=== PATIENT | male | born 1955 | race Two or more races ===

== ENCOUNTER → 2016-05-07 | Outpatient (CLI) | payer MEDICARE, MEDICAID ==
[~2016-05-07] MED LIST: BENZ1TAB2 PO; CITA-73 PO; FOLI1TAB51 PO; GLIP-115 PO; INSUINJ37 SUBCUT; METOCLOPRAMIDE PO; OMEP20CA5 PO; PROP60CA8 PO; TRAM-297 PO; ZIPR80CA8 PO
[2016-05-07 10:32] LABS: Basophils # (auto) 0 uL; Basophils % (auto) 0.4 % (0.0-2.0); Eosinophils # (auto) 0.1 uL; Eosinophils % (auto) 2.7 % (0.0-7.0); Hematocrit 40.8 % (41.0-53.0); Hemoglobin 13.1 g/dL (13.5-17.5); Lymphocytes % (auto) 24.3 % (10.0-50.0); Mean Corpuscular Hgb Conc. 32.3 g/dL (32.0-36.0); Mean Corpuscular Volume 93.1 fL (80.0-100.0); Mean Platelet Volume 9.7 fL (7.4-10.4); Monocytes # (auto) 0.3 uL; Monocytes % (auto) 7.1 % (0.0-12.0); Neutrophils # (auto) 2.8 uL; Neutrophils % (auto) 65.5 % (37.0-80.0); Platelet Count (auto) 93 10^3/uL (140-450); Red Cell Distribution Width 14.4 % (11.6-16.0); White Blood Cell 4.2 10^3/uL (4.4-10.8)
[2016-05-07 10:43] LABS: BUN/Creatinine Ratio 18.4; Bilirubin, Total 1.3 mg/dL (0.2-1.0); Calcium 8.5 mg/dL (8.5-10.1); Potassium 4.2 mmol/L (3.5-5.1); Total Protein 7.7 g/dL (6.4-8.2)
== END | disposition home or self-care (01) ==
LOC: LAB 09:27
PROVIDERS: ATTEND Internal Medicine
DX: D69.3 Immune thrombocytopenic purpura (principal)
CPT/HCPCS: 36415; 80053; 83615; 85025

== ENCOUNTER → 2016-07-30 | Outpatient (CLI) | payer MEDICARE, MEDICAID ==
[2016-07-30 10:01] LABS: Basophils # (auto) 0 uL; Basophils % (auto) 0.1 % (0.0-2.0); Eosinophils # (auto) 0.1 uL; Hemoglobin 13.6 g/dL (13.5-17.5); Lymphocytes # (auto) 0.9 uL; Lymphocytes % (auto) 19.3 % (10.0-50.0); Mean Corpuscular Hemoglobin 31.2 pg (28.0-32.0); Mean Corpuscular Hgb Conc. 33.3 g/dL (32.0-36.0); Mean Corpuscular Volume 93.8 fL (80.0-100.0); Mean Platelet Volume 9.6 fL (7.4-10.4); Monocytes # (auto) 0.5 uL; Monocytes % (auto) 10.3 % (0.0-12.0); Neutrophils # (auto) 3.3 uL; Neutrophils % (auto) 68.3 % (37.0-80.0); Platelet Count (auto) 94 10^3/uL (140-450); Red Cell Distribution Width 15.7 % (11.6-16.0); White Blood Cell 4.9 10^3/uL (4.4-10.8)
[2016-07-30 10:32] LABS: Albumin 2.9 g/dL (3.4-5.0); BUN/Creatinine Ratio 18.6; Bilirubin, Total 1.4 mg/dL (0.2-1.0); Calcium 8.5 mg/dL (8.5-10.1); Potassium 4.1 mmol/L (3.5-5.1); Total Protein 7.7 g/dL (6.4-8.2)
== END | disposition home or self-care (01) ==
LOC: LAB 08:14
PROVIDERS: ATTEND Internal Medicine
DX: D69.3 Immune thrombocytopenic purpura (principal)
CPT/HCPCS: 36415; 80053; 83615; 85025

== ENCOUNTER → 2016-10-26 | Outpatient (CLI) | payer MEDICARE, OTHER ==
[~2016-10-26] MED LIST changes: -OMEP20CA5 PO; +OMEP20CA74 PO
[2016-10-26 11:43] LABS: Basophils # (auto) 0 uL; Basophils % (auto) 0.4 % (0.0-2.0); CONDITION Y; Eosinophils # (auto) 0.1 uL; Eosinophils % (auto) 1.6 % (0.0-7.0); Hematocrit 37.9 % (41.0-53.0); Hemoglobin 12.9 g/dL (13.5-17.5); Lymphocytes # (auto) 0.9 uL; Lymphocytes % (auto) 22.3 % (10.0-50.0); Mean Corpuscular Hemoglobin 32.2 pg (28.0-32.0); Mean Corpuscular Hgb Conc. 34.1 g/dL (32.0-36.0); Mean Corpuscular Volume 94.3 fL (80.0-100.0); Monocytes # (auto) 0.4 uL; Monocytes % (auto) 9.7 % (0.0-12.0); Neutrophils # (auto) 2.7 uL; Platelet Count (auto) 86 10^3/uL (140-450); Red Cell Distribution Width 14.3 % (11.6-16.0); White Blood Cell 4.2 10^3/uL (4.4-10.8)
[2016-10-26 12:05] LABS: Albumin 2.8 g/dL (3.4-5.0); Potassium 4.2 mmol/L (3.5-5.1); Total Protein 7.7 g/dL (6.4-8.2)
== END | disposition home or self-care (01) ==
LOC: LAB 11:04
PROVIDERS: ATTEND Internal Medicine
DX: D69.3 Immune thrombocytopenic purpura (principal)
CPT/HCPCS: 36415; 80053; 83615; 85025

== ENCOUNTER 2017-01-12 23:32 | Emergency (ER) | payer MEDICARE, MEDICAID ==
[~2017-01-12] VITALS: Ht 162.6 cm; Wt 90.7 kg
[~2017-01-12 23:32] MED LIST changes: -FOLI1TAB51 PO; +INSLANTI SC; -INSUINJ37 SUBCUT; -TRAM-297 PO
[2017-01-13 01:40] LABS: Basophils # (auto) 0 uL; Basophils % (auto) 0.3 % (0.0-2.0); Eosinophils # (auto) 0.1 uL; Eosinophils % (auto) 3.8 % (0.0-7.0); Hematocrit 34.9 % (41.0-53.0); Hemoglobin 11.9 g/dL (13.5-17.5); Lymphocytes # (auto) 1.2 uL; Lymphocytes % (auto) 32.7 % (10.0-50.0); Mean Corpuscular Hemoglobin 31.8 pg (28.0-32.0); Mean Corpuscular Volume 93.5 fL (80.0-100.0); Mean Platelet Volume 9.1 fL (6.9-10.8); Monocytes # (auto) 0.5 uL; Monocytes % (auto) 13.4 % (0.0-12.0); Neutrophils # (auto) 1.9 uL; Neutrophils % (auto) 49.8 % (37.0-80.0); Nucleated Red Blood Cells % 0.1 %; Platelet Count (auto) 69 10^3/uL (140-450); Red Cell Distribution Width 14.9 % (11.8-14.3); White Blood Cell 3.8 10^3/uL (4.4-10.8)
[2017-01-13 01:56] LABS: Albumin 2.3 g/dL (3.4-5.0); Anion Gap 9 (5-15); Aspartate Aminotransferase 37 U/L (15-37); BUN/Creatinine Ratio 18.2; Blood Urea Nitrogen 16 mg/dL (7-18); Calcium 7.7 mg/dL (8.5-10.1); Carbon Dioxide 25 mmol/L (21-32); Chloride 109 mmol/L (98-107); GFR African American 114 mL/min; GFR Non-African American 94 mL/min; Glucose 247 mg/dL (74-106); Magnesium 2.2 mg/dL (1.6-2.6); Potassium 3.3 mmol/L (3.5-5.1); Sodium 143 mmol/L (136-145)
[2017-01-13 02:02] LABS: Alkaline Phosphatase 193 U/L (45-117); Bilirubin, Total 0.9 mg/dL (0.2-1.0); Total Protein 6.5 g/dL (6.4-8.2)
[2017-01-13 04:24] LABS: Urine Bilirubin Negative (Negative); Urine Blood Negative /uL (Negative); Urine Color Yellow (Yellow); Urine Glucose 4+ mg/dL (Normal); Urine Ketone Negative (Negative); Urine Nitrite Negative (Negative); Urine RBC 3 /hpf (0 - 3); Urine Squamous Epithelial Cell FEW /hpf (<5); Urine Urobilinogen Normal (Negative); Urine pH 5.5 (5.0-8.0)
[2017-01-13] MEDS ORDERED: SODIUM CHLORIDE 0.9% 1,000 ML IV ONE ×2 (05:00→07:28)
[2017-01-13] MEDS ORDERED: cloNIDine HCL 0.1 MG TAB PO ONE (05:00)
[2017-01-13] MEDS ORDERED: diphenhdrAMINE HCL 50 MG/1 ML VL IV ONE (07:30)
[2017-01-13 09:13] VITALS: BP 192/97
[2017-01-13] MEDS ORDERED: POTASSIUM CHL 10% (20 MEQ/15ML) 15ml ORAL SOLN PO ONE (10:15)
== END 2017-01-13 11:03 | disposition home or self-care (01) ==
LOC: EDBD 23:32 → ER 23:36
DX: F20.9 Schizophrenia, unspecified (principal); I10 Essential (primary) hypertension; E11.40 Type 2 diabetes mellitus with diabetic neuropathy, unspecified; E87.6 Hypokalemia; D69.6 Thrombocytopenia, unspecified; G24.01 Drug induced subacute dyskinesia; E11.9 Type 2 diabetes mellitus without complications; Z79.4 Long term (current) use of insulin
CPT/HCPCS: 36415; 51702; 70450; 71010; 80053; 80307; 80320; 81001; 82140; 82962; 83735; 84443; 84484; 85025; 93005; 94761; 96361; 96374; 99285; J1200; J7030

== ENCOUNTER → 2017-02-07 | Outpatient (CLI) | payer MEDICARE, MEDICAID ==
[~2017-02-07] MED LIST changes: +AML5T PO; +ASP81EC PO; +ATOR20TA50 PO; +CLON0.1T PO; -PROP60CA8 PO
[2017-02-07 09:50] LABS: Basophils # (auto) 0 uL; Basophils % (auto) 0.2 % (0.0-2.0); Eosinophils # (auto) 0.1 uL; Hemoglobin 12.5 g/dL (13.5-17.5); Lymphocytes # (auto) 0.9 uL; Monocytes # (auto) 0.3 uL; Platelet Count (auto) 59 10^3/uL (140-450); White Blood Cell 3.5 10^3/uL (4.4-10.8)
[2017-02-07 09:52] LABS: Eosinophils % (auto) 2.1 % (0.0-7.0); Hematocrit 35.9 % (41.0-53.0); Lymphocytes % (auto) 25.7 % (10.0-50.0); Mean Corpuscular Hemoglobin 32.5 pg (28.0-32.0); Mean Corpuscular Volume 93.1 fL (80.0-100.0); Mean Platelet Volume 9.5 fL (6.9-10.8); Neutrophils # (auto) 2.3 uL; Nucleated Red Blood Cells % 0.1 %; Red Cell Distribution Width 14.7 % (11.8-14.3)
[2017-02-07 10:14] LABS: Albumin 2.5 g/dL (3.4-5.0); BUN/Creatinine Ratio 21.4; Bilirubin, Total 0.8 mg/dL (0.2-1.0); Potassium 3.9 mmol/L (3.5-5.1); Total Protein 7.2 g/dL (6.4-8.2)
== END | disposition home or self-care (01) ==
LOC: LAB 09:19
PROVIDERS: ATTEND Internal Medicine
DX: D69.3 Immune thrombocytopenic purpura (principal)
CPT/HCPCS: 36415; 80053; 83615; 85025

== ENCOUNTER → 2017-02-28 | Outpatient (CLI) | payer MEDICARE, MEDICAID ==
[2017-02-28 11:36] LABS: Basophils # (auto) 0 uL; Basophils % (auto) 0.3 % (0.0-2.0); Eosinophils # (auto) 0.1 uL; Eosinophils % (auto) 1.4 % (0.0-7.0); Hemoglobin 12.6 g/dL (13.5-17.5); Lymphocytes # (auto) 0.9 uL; Lymphocytes % (auto) 19.4 % (10.0-50.0); Mean Corpuscular Hgb Conc. 34.1 g/dL (32.0-36.0); Mean Corpuscular Volume 93.8 fL (80.0-100.0); Mean Platelet Volume 9.1 fL (6.9-10.8); Monocytes # (auto) 0.3 uL; Neutrophils # (auto) 3.4 uL; Neutrophils % (auto) 71.9 % (37.0-80.0); Nucleated Red Blood Cells % 0.1 %; Platelet Count (auto) 74 10^3/uL (140-450); Red Cell Distribution Width 14.3 % (11.8-14.3); White Blood Cell 4.7 10^3/uL (4.4-10.8)
== END | disposition home or self-care (01) ==
LOC: LAB 11:19
PROVIDERS: ATTEND Internal Medicine
DX: D89.0 Polyclonal hypergammaglobulinemia (principal)
CPT/HCPCS: 36415; 85025

== ENCOUNTER 2017-03-02 12:19 | Emergency (ER) | payer MEDICARE, MEDICAID ==
[~2017-03-02] VITALS: Ht 157.5 cm; Wt 90.7 kg
[2017-03-02] MEDS ORDERED: SODIUM CHLORIDE 0.9% 1,000 ML IV ONE (16:25)
[2017-03-02 16:38] LABS: Basophils # (auto) 0 uL; Basophils % (auto) 0.2 % (0.0-2.0); Eosinophils # (auto) 0 uL; Eosinophils % (auto) 0.5 % (0.0-7.0); Hematocrit 42.2 % (41.0-53.0); Hemoglobin 14.5 g/dL (13.5-17.5); Lymphocytes # (auto) 0.5 uL; Lymphocytes % (auto) 8.8 % (10.0-50.0); Mean Corpuscular Hemoglobin 31.9 pg (28.0-32.0); Mean Corpuscular Hgb Conc. 34.3 g/dL (32.0-36.0); Mean Corpuscular Volume 93.1 fL (80.0-100.0); Mean Platelet Volume 9.1 fL (6.9-10.8); Monocytes # (auto) 0.5 uL; Monocytes % (auto) 9.6 % (0.0-12.0); Neutrophils # (auto) 4.6 uL; Neutrophils % (auto) 80.9 % (37.0-80.0); Nucleated Red Blood Cells % 0.1 %; Platelet Count (auto) 70 10^3/uL (140-450); Red Cell Distribution Width 14.4 % (11.8-14.3); White Blood Cell 5.7 10^3/uL (4.4-10.8)
[2017-03-02 16:48] LABS: Albumin 3.1 g/dL (3.4-5.0); BUN/Creatinine Ratio 18.3; Bilirubin, Total 1.1 mg/dL (0.2-1.0); Calcium 8.2 mg/dL (8.5-10.1); Potassium 3.7 mmol/L (3.5-5.1); Total Protein 8.3 g/dL (6.4-8.2)
[2017-03-02 17:35] VITALS: BP 145/68
== END 2017-03-02 19:16 | disposition home or self-care (01) ==
LOC: ER 12:19 → EDBD 12:19 → ER 19:16
DX: M79.674 Pain in right toe(s) (principal); E11.65 Type 2 diabetes mellitus with hyperglycemia; D69.6 Thrombocytopenia, unspecified; I10 Essential (primary) hypertension; E78.5 Hyperlipidemia, unspecified; M19.90 Unspecified osteoarthritis, unspecified site; Z79.4 Long term (current) use of insulin; Z79.82 Long term (current) use of aspirin
CPT/HCPCS: 36415; 80053; 82962; 85025; 96360; 96361

== ENCOUNTER → 2017-05-23 | Outpatient (CLI) | payer MEDICARE, MEDICAID ==
[2017-05-23 10:57] LABS: Basophils # (auto) 0 uL; Basophils % (auto) 0.2 % (0.0-2.0); Eosinophils # (auto) 0.1 uL; Hematocrit 38.9 % (41.0-53.0); Lymphocytes # (auto) 1.2 uL; Mean Corpuscular Hemoglobin 31.2 pg (28.0-32.0); Mean Corpuscular Hgb Conc. 33.5 g/dL (32.0-36.0); Mean Corpuscular Volume 93.2 fL (80.0-100.0); Monocytes # (auto) 0.7 uL; Monocytes % (auto) 8.8 % (0.0-12.0); Neutrophils # (auto) 5.9 uL; Nucleated Red Blood Cells % 0.1 %; Platelet Count (auto) 87 10^3/uL (140-450); Red Blood Cells 4.17 10^6/uL (4.5-5.90); Red Cell Distribution Width 14.4 % (11.8-14.3); White Blood Cell 7.8 10^3/uL (4.4-10.8)
[2017-05-23 11:34] LABS: Albumin 2.9 g/dL (3.4-5.0); Calcium 8.4 mg/dL (8.5-10.1); Potassium 4.6 mmol/L (3.5-5.1); Total Protein 7.9 g/dL (6.4-8.2)
== END | disposition home or self-care (01) ==
LOC: LAB 10:44
PROVIDERS: ATTEND Internal Medicine
DX: D69.6 Thrombocytopenia, unspecified (principal)
CPT/HCPCS: 36415; 80053; 83615; 85025

== ENCOUNTER 2017-08-26 12:43 | Emergency (ER) | payer MEDICARE, MEDICAID ==
[~2017-08-26] VITALS: Ht 165.1 cm; Wt 77.1 kg
[2017-08-26] MEDS ORDERED: ASPirin 81 mg TAB PO ONE (13:30)
[2017-08-26 14:03] LABS: Basophils # (auto) 0 uL; Basophils % (auto) 0.4 % (0.0-2.0); Eosinophils # (auto) 0.1 uL; Eosinophils % (auto) 1.9 % (0.0-7.0); Hematocrit 31.4 % (41.0-53.0); Hemoglobin 10.7 g/dL (13.5-17.5); Lymphocytes # (auto) 0.7 uL; Lymphocytes % (auto) 18.7 % (10.0-50.0); Mean Corpuscular Hemoglobin 31.2 pg (28.0-32.0); Mean Corpuscular Hgb Conc. 34.2 g/dL (32.0-36.0); Mean Corpuscular Volume 91.2 fL (80.0-100.0); Monocytes # (auto) 0.5 uL; Monocytes % (auto) 12.1 % (0.0-12.0); Neutrophils # (auto) 2.6 uL; Neutrophils % (auto) 66.9 % (37.0-80.0); Platelet Count (auto) 69 10^3/uL (140-450); Red Blood Cells 3.44 10^6/uL (4.5-5.90); Red Cell Distribution Width 14.5 % (11.8-14.3); White Blood Cell 3.9 10^3/uL (4.4-10.8)
[2017-08-26 14:19] LABS: INR 1.07 (0.9-1.15); Partial Thromboplastin Time 25.9 sec (23.78-33.04); Prothrombin Time 11.4 sec (9.27-12.13)
[2017-08-26 14:36] LABS: Alanine Aminotransferase 41 U/L (16-61); Albumin 2.5 g/dL (3.4-5.0); Alkaline Phosphatase 258 U/L (45-117); Anion Gap 9 (5-15); Aspartate Aminotransferase 29 U/L (15-37); Bilirubin, Total 0.7 mg/dL (0.2-1.0); Blood Urea Nitrogen 15 mg/dL (7-18); Calcium 7.6 mg/dL (8.5-10.1); Carbon Dioxide 23 mmol/L (21-32); Chloride 108 mmol/L (98-107); GFR African American 98 mL/min; GFR Non-African American 81 mL/min; Glucose 297 mg/dL (74-106); Potassium 3.9 mmol/L (3.5-5.1); Sodium 140 mmol/L (136-145); Total Protein 6.8 g/dL (6.4-8.2)
[2017-08-26] MEDS ORDERED: KETOROLAC TROMETH 60MG/2ML VIAL IM ONE (15:00)
[2017-08-26 15:21] VITALS: BP 135/71
== END 2017-08-26 16:20 | disposition home or self-care (01) ==
LOC: ER 12:43 → EDUNIT# 12:43 → EDBD 12:43 → ER 16:20
DX: R07.89 Other chest pain (principal); I10 Essential (primary) hypertension; E11.9 Type 2 diabetes mellitus without complications; E78.5 Hyperlipidemia, unspecified; M19.90 Unspecified osteoarthritis, unspecified site; Z86.73 Personal history of transient ischemic attack (TIA), and cerebral infarction without residual deficits; Z90.89 Acquired absence of other organs; Z79.4 Long term (current) use of insulin
CPT/HCPCS: 36415; 70450; 71250; 74176; 80053; 83880; 84484; 85025; 85610; 85730; 96372; 99285; J1885; 93005

== ENCOUNTER 2017-08-30 18:08 | Inpatient (IN) | payer MEDICARE, MEDICAID ==
[~2017-08-30] VITALS: Ht 162.6 cm; Wt 80.8 kg
[2017-08-30 20:13] LABS: Basophils # (auto) 0 uL; Basophils % (auto) 0.3 % (0.0-2.0); Eosinophils # (auto) 0.1 uL; Eosinophils % (auto) 2.6 % (0.0-7.0); Hematocrit 34.2 % (41.0-53.0); Hemoglobin 11.6 g/dL (13.5-17.5); Lymphocytes # (auto) 0.9 uL; Lymphocytes % (auto) 24.8 % (10.0-50.0); Mean Corpuscular Hemoglobin 31.2 pg (28.0-32.0); Mean Corpuscular Hgb Conc. 33.8 g/dL (32.0-36.0); Mean Corpuscular Volume 92.4 fL (80.0-100.0); Monocytes # (auto) 0.4 uL; Monocytes % (auto) 11.4 % (0.0-12.0); Neutrophils # (auto) 2.2 uL; Neutrophils % (auto) 60.9 % (37.0-80.0); Platelet Count (auto) 72 10^3/uL (140-450); Red Blood Cells 3.71 10^6/uL (4.5-5.90); Red Cell Distribution Width 15.1 % (11.8-14.3); White Blood Cell 3.6 10^3/uL (4.4-10.8)
[2017-08-30 20:25] LABS: INR 1.07 (0.9-1.15); Partial Thromboplastin Time 26.7 sec (23.78-33.04); Prothrombin Time 11.4 sec (9.27-12.13)
[2017-08-30 20:35] LABS: Alanine Aminotransferase 48 U/L (16-61); Albumin 2.6 g/dL (3.4-5.0); Alkaline Phosphatase 252 U/L (45-117); Anion Gap 9 (5-15); Aspartate Aminotransferase 44 U/L (15-37); BUN/Creatinine Ratio 15.4; Bilirubin, Total 0.7 mg/dL (0.2-1.0); Blood Urea Nitrogen 16 mg/dL (7-18); Calcium 7.7 mg/dL (8.5-10.1); Carbon Dioxide 24 mmol/L (21-32); Chloride 105 mmol/L (98-107); GFR African American 94 mL/min; GFR Non-African American 77 mL/min; Glucose 268 mg/dL (74-106); Potassium 3.9 mmol/L (3.5-5.1); Sodium 138 mmol/L (136-145); Total Protein 7.2 g/dL (6.4-8.2)
[2017-08-30 23:15] LABS: Urine Bacteria NONE SEEN /hpf (None Seen); Urine Blood TRACE /uL (Negative); Urine WBC 1 /hpf (0 - 3)
[2017-08-31] MEDS ORDERED: ONDANSETRON HCL 4 MG/2 ML VIAL IV PRN (05:00)
[2017-08-31] MEDS ORDERED: LACTULOSE 20Gm/30ML SOLN PO ONE (05:00)
[2017-08-31] MEDS ORDERED: HYDROcodone-ACET 5/325MG TAB PO PRN (05:00)
[2017-08-31] MEDS ORDERED: IBUPROFEN 600 MG TAB PO PRN (05:00)
[2017-08-31] MEDS ORDERED: DEXTROSE (50%) 50ML SYRG IV PRN ×2 (05:00→05:30)
[2017-08-31 06:10] VITALS: BP 130/66
[2017-08-31] MEDS: InsuLIN REG 1unit/0.01ml Soln (100units/ml) SC SCH ×3 (06:37→17:00)
[2017-08-31] MEDS: ACCU-CHEK COMFORT CURVE STRIP VI SCH ×3 (06:38→17:00)
[2017-08-31] MEDS ORDERED: InsuLIN REG 1unit/0.01ml Soln (100units/ml) SC SCH ×2 (07:00→22:00)
[2017-08-31] MEDS ORDERED: ACCU-CHEK COMFORT CURVE STRIP VI SCH (07:00)
[2017-08-31 07:04] VITALS: BP 130/66
[2017-08-31 08:21] LABS: Basophils # (auto) 0 uL; Basophils % (auto) 0.3 % (0.0-2.0); Eosinophils # (auto) 0.1 uL; Eosinophils % (auto) 2.4 % (0.0-7.0); Hematocrit 36.5 % (41.0-53.0); Hemoglobin 12.3 g/dL (13.5-17.5); Lymphocytes # (auto) 0.7 uL; Lymphocytes % (auto) 23.8 % (10.0-50.0); Mean Corpuscular Hemoglobin 31.1 pg (28.0-32.0); Mean Corpuscular Hgb Conc. 33.7 g/dL (32.0-36.0); Mean Corpuscular Volume 92.2 fL (80.0-100.0); Monocytes # (auto) 0.4 uL; Monocytes % (auto) 12.3 % (0.0-12.0); Neutrophils # (auto) 1.8 uL; Neutrophils % (auto) 61.2 % (37.0-80.0); Nucleated Red Blood Cells % 0.1 %; Platelet Count (auto) 70 10^3/uL (140-450); Red Blood Cells 3.96 10^6/uL (4.5-5.90); Red Cell Distribution Width 14.8 % (11.8-14.3)
[2017-08-31 08:28] LABS: Albumin 2.7 g/dL (3.4-5.0); BUN/Creatinine Ratio 11.7; Calcium 8.1 mg/dL (8.5-10.1); Potassium 4.1 mmol/L (3.5-5.1)
[2017-08-31 08:40] LABS: Bilirubin, Total 0.7 mg/dL (0.2-1.0); Total Protein 7.5 g/dL (6.4-8.2)
[2017-08-31] MEDS ORDERED: BENZ0.5T14 PO (09:22)
[2017-08-31 09:36] VITALS: BP 130/66
[2017-08-31] MEDS ORDERED: cloNIDine HCL 0.1 MG TAB PO SCH (10:00)
[2017-08-31] MEDS ORDERED: INSULIN LANTUS (GLARGINE) 1 /0.01ml (100units/ml) SC SCH (10:00)
[2017-08-31] MEDS ORDERED: CITALOPRAM HYDROBR 20 MG TAB PO SCH (10:00)
[2017-08-31 12:38] VITALS: BP 146/74
[2017-08-31 14:40] VITALS: BP 130/66
[2017-08-31] MEDS ORDERED: LACTULOSE 20Gm/30ML SOLN PO SCH (17:00)
[2017-08-31 17:31] VITALS: BP 153/74
[2017-08-31] MEDS ORDERED: ZIPRASIDONE 80 MG PO SCH (18:00)
[2017-08-31] MEDS ORDERED: ATORVASTATIN 20 MG TAB PO SCH (22:00)
[2017-09-01] MEDS ORDERED: PANTOPRAZOLE 40 MG TAB PO SCH (10:00)
[2017-09-01] MEDS ORDERED: ASPirin-EC 81 mg tab PO SCH (10:00)
== END 2017-08-31 17:12 | disposition home or self-care (01) | DRG 637 ==
LOC: EDBD 18:08 → ER 18:13 → OVERFLOW 18:14 → WEST WING 08-31 06:00
PROVIDERS: ADMIT Nurse Practitioner Family; ATTEND Nurse Practitioner Family
DX: E11.65 Type 2 diabetes mellitus with hyperglycemia (principal); E43 Unspecified severe protein-calorie malnutrition; E72.20 Disorder of urea cycle metabolism, unspecified; R42 Dizziness and giddiness; K80.20 Calculus of gallbladder without cholecystitis without obstruction; K74.60 Unspecified cirrhosis of liver; I11.9 Hypertensive heart disease without heart failure; M19.90 Unspecified osteoarthritis, unspecified site; F20.9 Schizophrenia, unspecified; Z79.4 Long term (current) use of insulin; Z82.49 Family history of ischemic heart disease and other diseases of the circulatory system; Z86.73 Personal history of transient ischemic attack (TIA), and cerebral infarction without residual deficits; Z83.3 Family history of diabetes mellitus
CPT/HCPCS: 36415; 70450; 71045; 74176; 80053; 81001; 82140; 82962; 83036; 83735; 83880; 84443; 84484; 85025; 85610; 85730; 87081; 93005; 94761; J1815

== ENCOUNTER 2017-10-28 20:56 | Inpatient (IN) | payer MEDICARE, MEDICAID ==
[~2017-10-28] VITALS: Ht 170.2 cm; Wt 87.0 kg
[~2017-10-28 20:56] MED LIST changes: +BENZ0.5T14 PO; -BENZ1TAB2 PO
[2017-10-28 21:44] LABS: Basophils # (auto) 0 uL; Basophils % (auto) 0.3 % (0.0-2.0); Eosinophils # (auto) 0.1 uL; Eosinophils % (auto) 1.4 % (0.0-7.0); Hematocrit 32.9 % (41.0-53.0); Hemoglobin 11.3 g/dL (13.5-17.5); Lymphocytes # (auto) 0.7 uL; Mean Corpuscular Hemoglobin 31.3 pg (28.0-32.0); Mean Corpuscular Hgb Conc. 34.2 g/dL (32.0-36.0); Mean Corpuscular Volume 91.5 fL (80.0-100.0); Monocytes # (auto) 0.4 uL; Monocytes % (auto) 11.1 % (0.0-12.0); Neutrophils # (auto) 2.8 uL; Neutrophils % (auto) 69.2 % (37.0-80.0); Nucleated Red Blood Cells % 0.1 %; Platelet Count (auto) 67 10^3/uL (140-450)
[2017-10-28 21:50] LABS: Alanine Aminotransferase 60 U/L (16-61); Albumin 2.4 g/dL (3.4-5.0); Amylase 30 U/L (25-115); Anion Gap 12 (5-15); Blood Urea Nitrogen 17 mg/dL (7-18); Calcium 7.2 mg/dL (8.5-10.1); Carbon Dioxide 21 mmol/L (21-32); Chloride 106 mmol/L (98-107); Lipase 161 U/L (73-393); Magnesium 2.2 mg/dL (1.6-2.6); Potassium 4.2 mmol/L (3.5-5.1); Sodium 139 mmol/L (136-145)
[2017-10-28 21:53] LABS: Aspartate Aminotransferase 48 U/L (15-37); Bilirubin, Total 0.6 mg/dL (0.2-1.0); GFR African American 59 mL/min; GFR Non-African American 49 mL/min; Total Protein 6.8 g/dL (6.4-8.2)
[2017-10-28 22:05] LABS: INR 1.07 (0.9-1.15); Partial Thromboplastin Time 26.9 sec (23.78-33.04); Prothrombin Time 11.4 sec (9.27-12.13)
[2017-10-28 22:07] LABS: Alkaline Phosphatase 315 U/L (45-117)
[2017-10-28 22:11] LABS: Glucose 515 mg/dL (74-106)
[2017-10-28 22:57] LABS: Urine Bacteria NONE SEEN /hpf (None Seen); Urine Blood 1+ /uL (Negative); Urine Specific Gravity 1.022 (1.001-1.035); Urine WBC 1 /hpf (0 - 3)
[2017-10-29] MEDS ORDERED: SODIUM CHLORIDE 0.9% 1,000 ML IV ONE (01:00)
[2017-10-29] MEDS ORDERED: LACTULOSE 20Gm/30ML SOLN PO ONE (01:30)
[2017-10-29] MEDS ORDERED: SODIUM CHLORIDE 0.9% 1,000 ML IV SCH (02:23)
[2017-10-29] MEDS ORDERED: MORPHINE SULF INJ 2 MG/ML SYRINGE 1ML IV PRN (02:30)
[2017-10-29] MEDS ORDERED: NITROGLYCERIN 0.4 MG SL TAB SL PRN (02:30)
[2017-10-29] MEDS ORDERED: ACETAMINOPHEN 325 MG TAB PO PRN (02:30)
[2017-10-29] MEDS ORDERED: DOCUSATE SOD 100 MG CAP PO PRN (02:30)
[2017-10-29] MEDS ORDERED: TEMAZEPAM 15 MG CAP PO PRN (02:30)
[2017-10-29] MEDS ORDERED: ONDANSETRON HCL 4 MG/2 ML VIAL IV PRN (02:30)
[2017-10-29] MEDS ORDERED: DEXTROSE (50%) 50ML SYRG IV PRN (02:30)
[2017-10-29] MEDS ORDERED: MORPHINE SULFATE 4 MG/ML SYR/VIAL IV PRN (02:30)
[2017-10-29] MEDS: InsuLIN REG 1unit/0.01ml Soln (100units/ml) SC SCH ×3 (04:44→18:09)
[2017-10-29] MEDS: ACCU-CHEK COMFORT CURVE STRIP VI SCH ×4 (04:45→21:44)
[2017-10-29] MEDS: HYDROcodone-ACET 5/325MG TAB PO PRN ×2 (04:47→09:53)
[2017-10-29 05:00] VITALS: BP 145/74
[2017-10-29 08:00] VITALS: BP 142/77
[2017-10-29] MEDS ORDERED: SOD CHL 0.45% 1,000 ML IV ONE (08:15)
[2017-10-29 09:09] VITALS: BP 142/77
[2017-10-29] MEDS: LACTULOSE 20Gm/30ML SOLN PO SCH ×3 (09:50→21:43)
[2017-10-29] MEDS: INSULIN LANTUS (GLARGINE) 1 /0.01ml (100units/ml) SC SCH ×3 (09:50→22:17)
[2017-10-29] MEDS: CITALOPRAM HYDROBR 20 MG TAB PO SCH (09:51)
[2017-10-29] MEDS: cloNIDine HCL 0.1 MG TAB PO SCH ×2 (09:51→21:21)
[2017-10-29] MEDS: amLODIPine BESYLATE 5 MG TAB PO SCH (09:51)
[2017-10-29] MEDS: ASPirin-EC 81 mg tab PO SCH (09:51)
[2017-10-29 13:23] VITALS: BP 155/80
[2017-10-29] MEDS: ZIPRASIDONE HYDROCHLORIDE 80 MG PO SCH ×2 (16:47→21:43)
[2017-10-29 17:00] VITALS: BP_SYST 146; BP_SYST 150; BP_SYST 160; BP_DIAS 81; BP_DIAS 82
[2017-10-29 22:00] VITALS: BP 111/53
[2017-10-29] MEDS ORDERED: InsuLIN REG 1unit/0.01ml Soln (100units/ml) SC SCH (22:00)
[2017-10-29] MEDS ORDERED: ATORVASTATIN 20 MG TAB PO SCH (22:00)
[2017-10-30 05:00] VITALS: BP 149/74
[2017-10-30] MEDS: LACTULOSE 20Gm/30ML SOLN PO SCH (05:32)
[2017-10-30 05:34] LABS: Basophils # (auto) 0 uL; Basophils % (auto) 0.3 % (0.0-2.0); Eosinophils # (auto) 0.1 uL; Eosinophils % (auto) 2.7 % (0.0-7.0); Hematocrit 35.6 % (41.0-53.0); Hemoglobin 12.3 g/dL (13.5-17.5); Lymphocytes % (auto) 19.4 % (10.0-50.0); Mean Corpuscular Hemoglobin 31.3 pg (28.0-32.0); Mean Corpuscular Hgb Conc. 34.5 g/dL (32.0-36.0); Mean Corpuscular Volume 90.5 fL (80.0-100.0); Monocytes # (auto) 0.6 uL; Monocytes % (auto) 12.4 % (0.0-12.0); Neutrophils # (auto) 3.2 uL; Neutrophils % (auto) 65.2 % (37.0-80.0); Nucleated Red Blood Cells % 0.1 %; Platelet Count (auto) 76 10^3/uL (140-450); Red Blood Cells 3.93 10^6/uL (4.5-5.90); White Blood Cell 4.9 10^3/uL (4.4-10.8)
[2017-10-30 05:58] LABS: Albumin 2.7 g/dL (3.4-5.0); BUN/Creatinine Ratio 10.3; Bilirubin, Total 0.8 mg/dL (0.2-1.0); Calcium 8.3 mg/dL (8.5-10.1); Total Protein 7.6 g/dL (6.4-8.2)
[2017-10-30] MEDS: ACCU-CHEK COMFORT CURVE STRIP VI SCH ×2 (06:23→12:05)
[2017-10-30] MEDS: InsuLIN REG 1unit/0.01ml Soln (100units/ml) SC SCH ×2 (06:23→12:00)
[2017-10-30 08:00] VITALS: BP 164/90
[2017-10-30 09:00] VITALS: BP 164/90
[2017-10-30] MEDS: INSULIN LANTUS (GLARGINE) 1 /0.01ml (100units/ml) SC SCH (09:24)
[2017-10-30] MEDS: amLODIPine BESYLATE 5 MG TAB PO SCH (09:26)
[2017-10-30] MEDS: ASPirin-EC 81 mg tab PO SCH (09:26)
[2017-10-30] MEDS: cloNIDine HCL 0.1 MG TAB PO SCH (09:26)
[2017-10-30] MEDS: CITALOPRAM HYDROBR 20 MG TAB PO SCH (09:27)
[2017-10-30] MEDS: ZIPRASIDONE HYDROCHLORIDE 80 MG PO SCH (09:32)
[2017-10-30 10:59] VITALS: BP 164/90
[2017-10-30 12:15] VITALS: BP 164/90
== END 2017-10-30 12:15 | disposition home or self-care (01) | DRG 682 ==
LOC: EDBD 20:56 → ER 20:56 → TELE 20:57 → TELE-WESTW 10-29 04:08
PROVIDERS: ADMIT Emergency Medicine; ATTEND Internal Medicine
DX: N17.0 Acute kidney failure with tubular necrosis (principal); E43 Unspecified severe protein-calorie malnutrition; J98.11 Atelectasis; F20.9 Schizophrenia, unspecified; Z86.73 Personal history of transient ischemic attack (TIA), and cerebral infarction without residual deficits; K74.60 Unspecified cirrhosis of liver; Z68.30 Body mass index [BMI] 30.0-30.9, adult; E11.9 Type 2 diabetes mellitus without complications; G90.8 Other disorders of autonomic nervous system; Z79.4 Long term (current) use of insulin; Z79.82 Long term (current) use of aspirin; S01.91XA Laceration without foreign body of unspecified part of head, initial encounter; X58.XXXA Exposure to other specified factors, initial encounter; Y93.89 Activity, other specified; Y92.89 Other specified places as the place of occurrence of the external cause; Y99.8 Other external cause status; E78.5 Hyperlipidemia, unspecified; I11.9 Hypertensive heart disease without heart failure; W22.03XA Walked into furniture, initial encounter; Z82.49 Family history of ischemic heart disease and other diseases of the circulatory system; Z83.3 Family history of diabetes mellitus
CPT/HCPCS: 36415; 70450; 71045; 74176; 80053; 81001; 82140; 82150; 82962; 83036; 83690; 83735; 83880; 84484; 85025; 85610; 85730; 87081; 93005; 96360; 96361; J1815

== ENCOUNTER 2017-11-07 10:21 | Inpatient (IN) | payer MEDICARE, MEDICAID ==
[~2017-11-07] VITALS: Ht 165.1 cm; Wt 79.3 kg
[2017-11-07] MEDS ORDERED: SODIUM CHLORIDE 0.9% 1,000 ML IV ONE (10:26)
[2017-11-07 10:48] LABS: Basophils # (auto) 0 uL; Basophils % (auto) 0.3 % (0.0-2.0); Eosinophils # (auto) 0.1 uL; Hematocrit 31.5 % (41.0-53.0); Hemoglobin 10.7 g/dL (13.5-17.5); Lymphocytes # (auto) 0.6 uL; Lymphocytes % (auto) 20.2 % (10.0-50.0); Mean Corpuscular Hemoglobin 30.5 pg (28.0-32.0); Mean Corpuscular Hgb Conc. 33.9 g/dL (32.0-36.0); Mean Corpuscular Volume 89.8 fL (80.0-100.0); Monocytes # (auto) 0.3 uL; Monocytes % (auto) 10.5 % (0.0-12.0); Nucleated Red Blood Cells % 0.1 %; Platelet Count (auto) 67 10^3/uL (140-450); Red Cell Distribution Width 15.3 % (11.8-14.3)
[2017-11-07 11:01] LABS: INR 1.13 (0.9-1.15); Partial Thromboplastin Time 27.5 sec (23.78-33.04)
[2017-11-07 11:10] LABS: Alanine Aminotransferase 55 U/L (16-61); Albumin 2.5 g/dL (3.4-5.0); Alkaline Phosphatase 229 U/L (45-117); Anion Gap 9 (5-15); Aspartate Aminotransferase 52 U/L (15-37); BUN/Creatinine Ratio 10.7; Bilirubin, Total 0.7 mg/dL (0.2-1.0); Blood Alcohol < 3.0 mg/dL (0-5); Blood Urea Nitrogen 12 mg/dL (7-18); Calcium 7.2 mg/dL (8.5-10.1); Carbon Dioxide 23 mmol/L (21-32); Chloride 108 mmol/L (98-107); GFR African American 86 mL/min; GFR Non-African American 71 mL/min; Glucose 312 mg/dL (74-106); Magnesium 2.1 mg/dL (1.6-2.6); Potassium 4.3 mmol/L (3.5-5.1); Sodium 140 mmol/L (136-145); Total Protein 6.8 g/dL (6.4-8.2)
[2017-11-07] MEDS ORDERED: PROMETHAZINE HCL 25 MG/ML 1ML IV PRN (12:00)
[2017-11-07] MEDS ORDERED: MORPHINE SULF INJ 2 MG/ML SYRINGE 1ML IV PRN (12:00)
[2017-11-07] MEDS ORDERED: NITROGLYCERIN 0.4 MG SL TAB SL PRN (12:00)
[2017-11-07] MEDS ORDERED: DEXTROSE (50%) 50ML SYRG IV PRN (12:00)
[2017-11-07 12:19] LABS: Urine Bacteria NONE SEEN /hpf (None Seen); Urine Blood 1+ /uL (Negative); Urine WBC <1 /hpf (0 - 3)
[2017-11-07 12:29] LABS: Alcohol, Urine < 3.0 mg/dL (0-5); Amphetamine Screen, Urine NEGATIVE (NEGATIVE); Barbiturate Scree,Urine NEGATIVE (NEGATIVE); Benzodiazephine Screen, Urine NEGATIVE (NEGATIVE); Cannabinoid Screen, Urine NEGATIVE (NEGATIVE); Cocaine Screen, Urine NEGATIVE (NEGATIVE); Opiate Scree,Urine NEGATIVE (NEGATIVE); Phencyclidine Screen, Urine NEGATIVE (NEGATIVE)
[2017-11-07 12:37] LABS: Cholesterol 89 mg/dL (< 200); Creatine Kinase IFCC 110 U/L (39-308); HDL Cholesterol 38 mg/dL (40-59); LDL Cholesterol 51 mg/dL (< 100); Triglycerides 93 mg/dL (< 150)
[2017-11-07] MEDS: SODIUM CHLORIDE 0.9% 1,000 ML IV SCH (13:12)
[2017-11-07] MEDS: InsuLIN REG 1unit/0.01ml Soln (100units/ml) SC SCH ×3 (13:21→20:00)
[2017-11-07] MEDS: ACCU-CHEK COMFORT CURVE STRIP VI SCH ×3 (13:21→20:00)
[2017-11-07 13:37] LABS: Folate (Folic Acid) 12.39 ng/mL (5.38-24)
[2017-11-07] MEDS ORDERED: LORazepam 2MG/ML-1ML VIAL IV PRN (17:45)
[2017-11-07] MEDS: ACETAMINOPHEN 500 MG TAB PO PRN ×2 (17:48→19:32)
[2017-11-07] MEDS: ZIPRASIDONE HYDROCHLORIDE 80 MG PO SCH (22:00)
[2017-11-07] MEDS: BENZTROPINE MESY 0.5 MG TAB PO SCH (22:00)
[2017-11-07] MEDS ORDERED: BENZTROPINE MESYLATE 0.5 MG PO SCH (22:00)
[2017-11-07] MEDS ORDERED: PATIENTS OWN MEDICATION (Atorvastatin Calcium 20 MG) PO SCH (22:00)
[2017-11-07] MEDS: INSULIN LANTUS (GLARGINE) 1 /0.01ml (100units/ml) SC SCH (22:35)
[2017-11-07] MEDS: ATORVASTATIN 20 MG TAB PO SCH (22:35)
[2017-11-07] MEDS: cloNIDine HCL 0.1 MG TAB PO SCH (22:35)
[2017-11-07 23:47] VITALS: BP 139/69
[2017-11-08] VITALS (7 sets, daily range): BP systolic 139–170; BP diastolic 58–82
[2017-11-08] MEDS: ACCU-CHEK COMFORT CURVE STRIP VI SCH ×6 (00:06→20:13)
[2017-11-08] MEDS: SODIUM CHLORIDE 0.9% 1,000 ML IV SCH ×2 (00:06→12:47)
[2017-11-08] MEDS: InsuLIN REG 1unit/0.01ml Soln (100units/ml) SC SCH ×6 (00:07→20:12)
[2017-11-08] MEDS: ZIPRASIDONE HYDROCHLORIDE 80 MG PO SCH (08:20)
[2017-11-08] MEDS: ASPirin 81 mg TAB PO SCH (08:44)
[2017-11-08] MEDS: cloNIDine HCL 0.1 MG TAB PO SCH ×2 (08:45→22:10)
[2017-11-08] MEDS: amLODIPine BESYLATE 5 MG TAB PO SCH (09:50)
[2017-11-08] MEDS: glipiZIDE 5 MG TAB PO SCH (09:52)
[2017-11-08] MEDS: BENZTROPINE MESY 0.5 MG TAB PO SCH ×2 (09:53→22:10)
[2017-11-08] MEDS: CITALOPRAM HYDROBR 20 MG TAB PO SCH (09:53)
[2017-11-08] MEDS: INSULIN LANTUS (GLARGINE) 1 /0.01ml (100units/ml) SC SCH ×2 (09:54→22:11)
[2017-11-08] MEDS ORDERED: PATIENTS OWN MEDICATION (Glipizide 5 MG) PO SCH (10:00)
[2017-11-08] MEDS ORDERED: ASPirin-EC 81 mg tab PO SCH (10:00)
[2017-11-08] MEDS ORDERED: OMEPRAZOLE 20 MG PO SCH (10:00)
[2017-11-08] MEDS ORDERED: CITALOPRAM HYDROBROMIDE 30 MG PO SCH (10:00)
[2017-11-08] MEDS ORDERED: PANTOPRAZOLE 40 MG TAB PO SCH (10:00)
[2017-11-08] MEDS: PANTOPRAZOLE 40 MG TAB PO SCH (10:03)
[2017-11-08] MEDS: ATORVASTATIN 20 MG TAB PO SCH (22:10)
[2017-11-09] MEDS: ACCU-CHEK COMFORT CURVE STRIP VI SCH ×6 (00:26→20:04)
[2017-11-09] MEDS: InsuLIN REG 1unit/0.01ml Soln (100units/ml) SC SCH ×6 (00:27→20:09)
[2017-11-09] MEDS: SODIUM CHLORIDE 0.9% 1,000 ML IV SCH ×2 (01:29→13:59)
[2017-11-09 04:48] VITALS: BP 134/60
[2017-11-09 08:00] VITALS: BP 130/61
[2017-11-09 08:38] VITALS: BP 130/61
[2017-11-09] MEDS: amLODIPine BESYLATE 5 MG TAB PO SCH (10:28)
[2017-11-09] MEDS: CITALOPRAM HYDROBR 20 MG TAB PO SCH (10:28)
[2017-11-09] MEDS: PANTOPRAZOLE 40 MG TAB PO SCH (10:29)
[2017-11-09] MEDS: BENZTROPINE MESY 0.5 MG TAB PO SCH ×2 (10:29→21:28)
[2017-11-09] MEDS: ASPirin 81 mg TAB PO SCH (10:30)
[2017-11-09] MEDS: cloNIDine HCL 0.1 MG TAB PO SCH ×2 (10:30→21:28)
[2017-11-09] MEDS: glipiZIDE 5 MG TAB PO SCH (10:35)
[2017-11-09] MEDS: INSULIN LANTUS (GLARGINE) 1 /0.01ml (100units/ml) SC SCH ×2 (10:35→21:44)
[2017-11-09 12:29] VITALS: BP 128/58
[2017-11-09 16:22] VITALS: BP 128/59
[2017-11-09] MEDS: ACETAMINOPHEN 500 MG TAB PO PRN (20:00)
[2017-11-09] MEDS: ATORVASTATIN 20 MG TAB PO SCH (21:28)
[2017-11-09 21:46] VITALS: BP 148/70
[2017-11-10] MEDS: ACCU-CHEK COMFORT CURVE STRIP VI SCH ×4 (00:03→12:00)
[2017-11-10] MEDS: SODIUM CHLORIDE 0.9% 1,000 ML IV SCH (02:29)
[2017-11-10] MEDS: InsuLIN REG 1unit/0.01ml Soln (100units/ml) SC SCH ×4 (04:45→12:00)
[2017-11-10 06:08] VITALS: BP 120/71
[2017-11-10 09:00] VITALS: BP 144/73
[2017-11-10] MEDS: glipiZIDE 5 MG TAB PO SCH (10:00)
[2017-11-10] MEDS: cloNIDine HCL 0.1 MG TAB PO SCH (10:00)
[2017-11-10] MEDS: BENZTROPINE MESY 0.5 MG TAB PO SCH (10:00)
[2017-11-10] MEDS: amLODIPine BESYLATE 5 MG TAB PO SCH (10:00)
[2017-11-10] MEDS: ASPirin 81 mg TAB PO SCH (10:00)
[2017-11-10] MEDS: INSULIN LANTUS (GLARGINE) 1 /0.01ml (100units/ml) SC SCH (10:00)
[2017-11-10] MEDS: CITALOPRAM HYDROBR 20 MG TAB PO SCH (10:00)
[2017-11-10] MEDS: PANTOPRAZOLE 40 MG TAB PO SCH (10:00)
[2017-11-10 13:00] VITALS: BP 152/80
== END 2017-11-10 14:30 | disposition home or self-care (01) | DRG 73 ==
LOC: ER 10:21 → EDUNIT# 10:21 → EDBD 10:21 → TELE 10:22 → TELE-CENTR 23:48
PROVIDERS: ADMIT Internal Medicine; ATTEND Specialist
DX: G90.8 Other disorders of autonomic nervous system (principal); E43 Unspecified severe protein-calorie malnutrition; D61.818 Other pancytopenia; R42 Dizziness and giddiness; E11.65 Type 2 diabetes mellitus with hyperglycemia; E11.649 Type 2 diabetes mellitus with hypoglycemia without coma; Z83.3 Family history of diabetes mellitus; K74.60 Unspecified cirrhosis of liver; F10.20 Alcohol dependence, uncomplicated; E78.5 Hyperlipidemia, unspecified; F20.9 Schizophrenia, unspecified; G47.30 Sleep apnea, unspecified; I10 Essential (primary) hypertension; K72.90 Hepatic failure, unspecified without coma; Z79.4 Long term (current) use of insulin; Z79.82 Long term (current) use of aspirin; Z79.899 Other long term (current) drug therapy; Z82.49 Family history of ischemic heart disease and other diseases of the circulatory system; Z86.73 Personal history of transient ischemic attack (TIA), and cerebral infarction without residual deficits; Z91.19 Patient's noncompliance with other medical treatment and regimen
CPT/HCPCS: 36415; 70450; 70551; 71045; 73502; 80053; 80061; 80307; 80320; 81001; 82140; 82550; 82607; 82746; 82962; 83036; 83735; 84443; 84484; 85025; 85610; 85652; 85730; 87081; 93306; 93886; 94761; 95819; 96372; 97163; J1815

== ENCOUNTER 2017-11-20 15:03 | Inpatient (IN) | payer MEDICARE, MEDICAID ==
[~2017-11-20] VITALS: Ht 162.6 cm; Wt 84.9 kg
[~2017-11-20 15:03] MED LIST changes: -METOCLOPRAMIDE PO
[2017-11-20] MEDS ORDERED: SODIUM CHLORIDE 0.9% 1,000 ML IVB ONE (15:49)
[2017-11-20 16:04] LABS: Basophils # (auto) 0 uL; Basophils % (auto) 0.4 % (0.0-2.0); Eosinophils # (auto) 0.1 uL; Eosinophils % (auto) 2.3 % (0.0-7.0); Hematocrit 31.9 % (41.0-53.0); Lymphocytes # (auto) 0.8 uL; Lymphocytes % (auto) 20.2 % (10.0-50.0); Mean Corpuscular Hemoglobin 31.2 pg (28.0-32.0); Mean Corpuscular Hgb Conc. 34.6 g/dL (32.0-36.0); Mean Corpuscular Volume 90.1 fL (80.0-100.0); Monocytes # (auto) 0.3 uL; Monocytes % (auto) 8.5 % (0.0-12.0); Neutrophils # (auto) 2.7 uL; Neutrophils % (auto) 68.6 % (37.0-80.0); Nucleated Red Blood Cells % 0.1 %; Platelet Count (auto) 66 10^3/uL (140-450); Red Blood Cells 3.54 10^6/uL (4.5-5.90); Red Cell Distribution Width 15.6 % (11.8-14.3)
[2017-11-20 16:36] LABS: Alanine Aminotransferase 59 U/L (16-61); Albumin 2.5 g/dL (3.4-5.0); Alkaline Phosphatase 217 U/L (45-117); Anion Gap 9 (5-15); Aspartate Aminotransferase 46 U/L (15-37); BUN/Creatinine Ratio 17.1; Bilirubin, Total 0.6 mg/dL (0.2-1.0); Blood Urea Nitrogen 20 mg/dL (7-18); Calcium 7.5 mg/dL (8.5-10.1); Carbon Dioxide 24 mmol/L (21-32); Chloride 109 mmol/L (98-107); GFR African American 82 mL/min; GFR Non-African American 67 mL/min; Glucose 123 mg/dL (74-106); Potassium 3.8 mmol/L (3.5-5.1); Sodium 142 mmol/L (136-145); Total Protein 7.1 g/dL (6.4-8.2)
[2017-11-20] MEDS ORDERED: LACTULOSE 20Gm/30ML SOLN PO ONE (17:30)
[2017-11-20] MEDS ORDERED: NITROGLYCERIN 0.4 MG SL TAB SL PRN (19:00)
[2017-11-20] MEDS ORDERED: MORPHINE SULF INJ 2 MG/ML SYRINGE 1ML IV PRN (19:00)
[2017-11-20] MEDS ORDERED: DEXTROSE (50%) 50ML SYRG IV PRN (19:15)
[2017-11-20 19:47] LABS: Urine Bacteria NONE SEEN /hpf (None Seen); Urine Blood 2+ /uL (Negative); Urine Specific Gravity 1.013 (1.001-1.035); Urine WBC <1 /hpf (0 - 3)
[2017-11-20 21:00] VITALS: BP 191/78
[2017-11-20] MEDS: PANTOPRAZOLE 40 MG/10 ML VIAL IV SCH (22:25)
[2017-11-20] MEDS: LACTULOSE 20Gm/30ML SOLN PO SCH (22:26)
[2017-11-20] MEDS: NEOMYCIN SULFATE 500 MG TAB PO SCH (22:26)
[2017-11-20] MEDS: InsuLIN REG 1unit/0.01ml Soln (100units/ml) SC SCH (22:27)
[2017-11-20] MEDS: ACCU-CHEK COMFORT CURVE STRIP VI SCH (22:28)
[2017-11-20] MEDS: INSULIN LANTUS (GLARGINE) 1 /0.01ml (100units/ml) SC SCH (22:28)
[2017-11-20 23:56] VITALS: BP 191/78
[2017-11-21] VITALS (7 sets, daily range): BP systolic 134–191; BP diastolic 56–98
[2017-11-21] MEDS ORDERED: LACT10SO3 PO (01:08)
[2017-11-21] MEDS ORDERED: VITA400T4 PO (01:15)
[2017-11-21] MEDS ORDERED: NEOM500T PO (01:15)
[2017-11-21] MEDS ORDERED: VITA100T3 PO (01:15)
[2017-11-21] MEDS: hydrALAZINE HCL 20 MG/ML VL IV PRN ×2 (01:34→16:40)
[2017-11-21] MEDS: LACTULOSE 20Gm/30ML SOLN PO SCH ×6 (02:34→21:44)
[2017-11-21] MEDS: ACCU-CHEK COMFORT CURVE STRIP VI SCH ×4 (06:26→21:51)
[2017-11-21] MEDS: InsuLIN REG 1unit/0.01ml Soln (100units/ml) SC SCH ×4 (06:26→22:00)
[2017-11-21] MEDS: PANTOPRAZOLE 40 MG/10 ML VIAL IV SCH ×2 (10:05→21:44)
[2017-11-21] MEDS: cloNIDine HCL 0.1 MG TAB PO SCH (10:06)
[2017-11-21] MEDS: METOPROLOL TARTRATE 50 MG TAB PO SCH ×2 (10:07→21:47)
[2017-11-21] MEDS: NEOMYCIN SULFATE 500 MG TAB PO SCH ×2 (10:07→21:44)
[2017-11-21] MEDS: LISINOPRIL 10 MG TAB PO SCH (21:46)
[2017-11-21] MEDS: INSULIN LANTUS (GLARGINE) 1 /0.01ml (100units/ml) SC SCH (22:00)
[2017-11-22] MEDS: LACTULOSE 20Gm/30ML SOLN PO SCH ×6 (02:09→22:16)
[2017-11-22 04:53] VITALS: BP 128/62
[2017-11-22] MEDS: InsuLIN REG 1unit/0.01ml Soln (100units/ml) SC SCH ×4 (06:12→22:19)
[2017-11-22] MEDS: ACCU-CHEK COMFORT CURVE STRIP VI SCH ×4 (06:12→22:19)
[2017-11-22 08:00] VITALS: BP 162/76
[2017-11-22] MEDS: PANTOPRAZOLE 40 MG/10 ML VIAL IV SCH ×2 (10:07→22:16)
[2017-11-22] MEDS: cloNIDine HCL 0.1 MG TAB PO SCH (10:07)
[2017-11-22] MEDS: NEOMYCIN SULFATE 500 MG TAB PO SCH ×2 (10:08→22:17)
[2017-11-22] MEDS: METOPROLOL TARTRATE 50 MG TAB PO SCH ×2 (10:08→22:17)
[2017-11-22] MEDS: LISINOPRIL 10 MG TAB PO SCH ×2 (10:09→22:18)
[2017-11-22 12:00] VITALS: BP 123/65
[2017-11-22 16:00] VITALS: BP 101/50
[2017-11-22 22:00] VITALS: BP 129/83
[2017-11-22] MEDS: INSULIN LANTUS (GLARGINE) 1 /0.01ml (100units/ml) SC SCH (22:18)
[2017-11-23] MEDS: LACTULOSE 20Gm/30ML SOLN PO SCH ×6 (02:06→22:13)
[2017-11-23 05:03] VITALS: BP 123/59
[2017-11-23] MEDS: ACCU-CHEK COMFORT CURVE STRIP VI SCH ×4 (06:20→22:14)
[2017-11-23] MEDS: InsuLIN REG 1unit/0.01ml Soln (100units/ml) SC SCH ×4 (06:20→22:00)
[2017-11-23 07:53] VITALS: BP 160/75
[2017-11-23] MEDS: PANTOPRAZOLE 40 MG/10 ML VIAL IV SCH ×2 (09:42→22:14)
[2017-11-23] MEDS: cloNIDine HCL 0.1 MG TAB PO SCH (09:43)
[2017-11-23] MEDS: LISINOPRIL 10 MG TAB PO SCH ×2 (09:44→22:12)
[2017-11-23] MEDS: METOPROLOL TARTRATE 50 MG TAB PO SCH ×2 (09:44→22:13)
[2017-11-23] MEDS: NEOMYCIN SULFATE 500 MG TAB PO SCH ×2 (09:45→22:12)
[2017-11-23 13:03] VITALS: BP 128/70
[2017-11-23] MEDS ORDERED: PATIENTS OWN MEDICATION PO ONE (15:00)
[2017-11-23] MEDS ORDERED: ZIPRASIDONE 80 MG PO SCH (15:15)
[2017-11-23] MEDS: ZIPRASIDONE 80 MG PO SCH ×2 (15:21→22:13)
[2017-11-23 16:29] VITALS: BP 163/76
[2017-11-23] MEDS: hydrALAZINE HCL 20 MG/ML VL IV PRN (18:37)
[2017-11-23 22:00] VITALS: BP 113/61
[2017-11-23] MEDS: INSULIN LANTUS (GLARGINE) 1 /0.01ml (100units/ml) SC SCH (22:15)
[2017-11-24] MEDS: LACTULOSE 20Gm/30ML SOLN PO SCH ×6 (02:00→21:51)
[2017-11-24 05:00] VITALS: BP 110/61
[2017-11-24 05:59] LABS: Basophils # (auto) 0 uL; Basophils % (auto) 0.4 % (0.0-2.0); Eosinophils # (auto) 0.1 uL; Monocytes # (auto) 0.4 uL; Neutrophils # (auto) 2.2 uL; Nucleated Red Blood Cells % 0.1 %; White Blood Cell 3.7 10^3/uL (4.4-10.8)
[2017-11-24] MEDS: InsuLIN REG 1unit/0.01ml Soln (100units/ml) SC SCH ×4 (06:05→21:43)
[2017-11-24] MEDS: ACCU-CHEK COMFORT CURVE STRIP VI SCH ×4 (06:05→21:42)
[2017-11-24 06:08] LABS: Eosinophils % (auto) 3.3 % (0.0-7.0); Hematocrit 32.8 % (41.0-53.0); Hemoglobin 11.4 g/dL (13.5-17.5); Lymphocytes # (auto) 0.9 uL; Lymphocytes % (auto) 24.8 % (10.0-50.0); Mean Corpuscular Hemoglobin 31.3 pg (28.0-32.0); Mean Corpuscular Hgb Conc. 34.8 g/dL (32.0-36.0); Mean Corpuscular Volume 90.2 fL (80.0-100.0); Monocytes % (auto) 11.4 % (0.0-12.0); Neutrophils % (auto) 60.1 % (37.0-80.0); Platelet Count (auto) 63 10^3/uL (140-450); Red Blood Cells 3.63 10^6/uL (4.5-5.90); Red Cell Distribution Width 15.3 % (11.8-14.3)
[2017-11-24 06:19] LABS: BUN/Creatinine Ratio 16.8; Calcium 7.7 mg/dL (8.5-10.1); Potassium 3.6 mmol/L (3.5-5.1)
[2017-11-24 09:00] VITALS: BP 135/74
[2017-11-24] MEDS: PANTOPRAZOLE 40 MG/10 ML VIAL IV SCH ×2 (09:25→21:50)
[2017-11-24] MEDS: cloNIDine HCL 0.1 MG TAB PO SCH (09:26)
[2017-11-24] MEDS: ZIPRASIDONE 80 MG PO SCH ×2 (09:26→22:00)
[2017-11-24] MEDS: METOPROLOL TARTRATE 50 MG TAB PO SCH ×2 (09:27→21:51)
[2017-11-24] MEDS: LISINOPRIL 10 MG TAB PO SCH ×2 (09:27→21:51)
[2017-11-24] MEDS: NEOMYCIN SULFATE 500 MG TAB PO SCH ×2 (09:28→21:50)
[2017-11-24 12:49] VITALS: BP 118/67
[2017-11-24 17:46] VITALS: BP 156/74
[2017-11-24] MEDS: INSULIN LANTUS (GLARGINE) 1 /0.01ml (100units/ml) SC SCH (21:43)
[2017-11-24 22:00] VITALS: BP 146/76
[2017-11-25] MEDS: LACTULOSE 20Gm/30ML SOLN PO SCH ×6 (01:46→22:12)
[2017-11-25 05:00] VITALS: BP 122/61
[2017-11-25] MEDS: ACCU-CHEK COMFORT CURVE STRIP VI SCH ×4 (06:22→22:18)
[2017-11-25] MEDS: InsuLIN REG 1unit/0.01ml Soln (100units/ml) SC SCH ×4 (06:23→22:22)
[2017-11-25] MEDS: ZIPRASIDONE 80 MG PO SCH ×2 (09:31→22:14)
[2017-11-25] MEDS: PANTOPRAZOLE 40 MG/10 ML VIAL IV SCH ×2 (09:31→22:15)
[2017-11-25] MEDS: cloNIDine HCL 0.1 MG TAB PO SCH (09:32)
[2017-11-25] MEDS: NEOMYCIN SULFATE 500 MG TAB PO SCH ×2 (09:32→22:16)
[2017-11-25] MEDS: LISINOPRIL 10 MG TAB PO SCH ×2 (09:32→22:16)
[2017-11-25] MEDS: METOPROLOL TARTRATE 50 MG TAB PO SCH ×2 (09:33→22:17)
[2017-11-25 17:00] VITALS: BP 149/78
[2017-11-25 22:00] VITALS: BP 169/72
[2017-11-25] MEDS: INSULIN LANTUS (GLARGINE) 1 /0.01ml (100units/ml) SC SCH (22:18)
[2017-11-25] MEDS ORDERED: MORPHINE SULF INJ 2 MG/ML SYRINGE 1ML IV PRN (23:15)
[2017-11-25] MEDS: hydrALAZINE HCL 20 MG/ML VL IV PRN (23:34)
[2017-11-25] MEDS: ONDANSETRON HCL 4 MG/2 ML VIAL IV PRN (23:44)
[2017-11-26] MEDS: LACTULOSE 20Gm/30ML SOLN PO SCH ×4 (01:21→14:00)
[2017-11-26 05:00] VITALS: BP 147/69
[2017-11-26] MEDS: ACCU-CHEK COMFORT CURVE STRIP VI SCH ×2 (05:53→11:55)
[2017-11-26] MEDS: InsuLIN REG 1unit/0.01ml Soln (100units/ml) SC SCH ×2 (05:54→11:56)
[2017-11-26 07:53] VITALS: BP 134/68
[2017-11-26] MEDS: METOPROLOL TARTRATE 50 MG TAB PO SCH (10:00)
[2017-11-26] MEDS ORDERED: ONDANSETRON HCL 4 MG/2 ML VIAL ONE (10:25)
[2017-11-26] MEDS: LISINOPRIL 10 MG TAB PO SCH (10:33)
[2017-11-26] MEDS: cloNIDine HCL 0.1 MG TAB PO SCH (10:34)
[2017-11-26] MEDS: NEOMYCIN SULFATE 500 MG TAB PO SCH (10:35)
[2017-11-26] MEDS: PANTOPRAZOLE 40 MG/10 ML VIAL IV SCH (10:36)
[2017-11-26] MEDS: ONDANSETRON HCL 4 MG/2 ML VIAL IV PRN ×2 (10:37→11:58)
[2017-11-26] MEDS: ZIPRASIDONE 80 MG PO SCH (10:46)
[2017-11-26 11:53] VITALS: BP 192/80
[2017-11-26 16:38] VITALS: BP 162/83
[2017-11-26 18:14] VITALS: BP 112/67
== END 2017-11-26 18:50 | disposition home or self-care (01) | DRG 441 ==
LOC: EDBD 15:03 → ER 15:08 → TELE 15:09 → TELE-WESTW 20:30
PROVIDERS: ADMIT Specialist; ATTEND Specialist
DX: K72.90 Hepatic failure, unspecified without coma (principal); N18.6 End stage renal disease; I12.0 Hypertensive chronic kidney disease with stage 5 chronic kidney disease or end stage renal disease; D69.59 Other secondary thrombocytopenia; K74.60 Unspecified cirrhosis of liver; Z79.4 Long term (current) use of insulin; E11.65 Type 2 diabetes mellitus with hyperglycemia; Z82.49 Family history of ischemic heart disease and other diseases of the circulatory system; E11.22 Type 2 diabetes mellitus with diabetic chronic kidney disease; E78.5 Hyperlipidemia, unspecified; D64.9 Anemia, unspecified; F17.200 Nicotine dependence, unspecified, uncomplicated; Z83.3 Family history of diabetes mellitus; Z86.73 Personal history of transient ischemic attack (TIA), and cerebral infarction without residual deficits; Z91.19 Patient's noncompliance with other medical treatment and regimen; Z91.14 Patient's other noncompliance with medication regimen; Z90.49 Acquired absence of other specified parts of digestive tract
CPT/HCPCS: 36415; 70450; 71045; 80048; 80053; 81001; 82140; 82962; 83735; 84443; 84484; 85025; 87040; 87081; 87086; 93005; 94761; 96361; 96374; C9113; J1815; J2405

== ENCOUNTER → 2017-12-24 | Outpatient (CLI) | payer MEDICARE, MEDICAID ==
[~2017-12-24] MED LIST changes: +LACT10SO3 PO; +NEOM500T PO; +VITA400T4 PO
[2017-12-24 11:09] LABS: Basophils # (auto) 0 uL; Basophils % (auto) 0.1 % (0.0-2.0); Eosinophils # (auto) 0.1 uL; Eosinophils % (auto) 1.4 % (0.0-7.0); Hematocrit 33.7 % (41.0-53.0); Hemoglobin 11.6 g/dL (13.5-17.5); Lymphocytes # (auto) 0.7 uL; Lymphocytes % (auto) 17.7 % (10.0-50.0); Mean Corpuscular Hemoglobin 30.7 pg (28.0-32.0); Mean Corpuscular Hgb Conc. 34.4 g/dL (32.0-36.0); Mean Corpuscular Volume 89.4 fL (80.0-100.0); Monocytes # (auto) 0.4 uL; Monocytes % (auto) 10.1 % (0.0-12.0); Neutrophils # (auto) 2.8 uL; Neutrophils % (auto) 70.7 % (37.0-80.0); Platelet Count (auto) 80 10^3/uL (140-450); Red Blood Cells 3.77 10^6/uL (4.5-5.90); Red Cell Distribution Width 15.5 % (11.8-14.3)
[2017-12-24 11:52] LABS: Albumin 2.7 g/dL (3.4-5.0); BUN/Creatinine Ratio 10.7; Bilirubin, Total 0.7 mg/dL (0.2-1.0); Calcium 8.2 mg/dL (8.5-10.1); Potassium 4.5 mmol/L (3.5-5.1); Total Protein 7.6 g/dL (6.4-8.2)
== END | disposition home or self-care (01) ==
LOC: LAB 10:41
PROVIDERS: ATTEND Internal Medicine
DX: D69.3 Immune thrombocytopenic purpura (principal)
CPT/HCPCS: 36415; 80053; 83615; 85025

== ENCOUNTER → 2018-03-26 | Outpatient (CLI) | payer MEDICARE, MEDICAID ==
[2018-03-26 12:19] LABS: Basophils # (auto) 0 uL; Basophils % (auto) 0.3 % (0.0-2.0); Eosinophils # (auto) 0 uL; Eosinophils % (auto) 0.8 % (0.0-7.0); Hemoglobin 12.2 g/dL (13.5-17.5); Lymphocytes # (auto) 0.9 uL; Lymphocytes % (auto) 17.1 % (10.0-50.0); Mean Corpuscular Hemoglobin 29.3 pg (28.0-32.0); Mean Corpuscular Hgb Conc. 32.8 g/dL (32.0-36.0); Mean Corpuscular Volume 89.2 fL (80.0-100.0); Monocytes # (auto) 0.4 uL; Monocytes % (auto) 7.5 % (0.0-12.0); Neutrophils # (auto) 3.7 uL; Neutrophils % (auto) 74.3 % (37.0-80.0); Platelet Count (auto) 80 10^3/uL (140-450); Red Blood Cells 4.15 10^6/uL (4.5-5.90); Red Cell Distribution Width 15.5 % (11.8-14.3)
[2018-03-26 13:23] LABS: Potassium 4.3 mmol/L (3.5-5.1)
[2018-03-26 13:31] LABS: Albumin 2.9 g/dL (3.4-5.0); BUN/Creatinine Ratio 13.2; Total Protein 7.8 g/dL (6.4-8.2)
== END | disposition home or self-care (01) ==
LOC: LAB 11:41
PROVIDERS: ATTEND Internal Medicine
DX: D69.3 Immune thrombocytopenic purpura (principal)
CPT/HCPCS: 36415; 80053; 83615; 85025

== ENCOUNTER 2018-04-05 12:07 | Emergency (ER) | payer MEDICARE, MEDICAID ==
[~2018-04-05] VITALS: Ht 162.6 cm; Wt 74.8 kg
[2018-04-05] MEDS ORDERED: MECLIZINE HCL 25 MG TAB PO ONE (12:45)
[2018-04-05 13:22] LABS: Basophils # (auto) 0 uL; Basophils % (auto) 0.4 % (0.0-2.0); Eosinophils # (auto) 0.1 uL; Hemoglobin 10.9 g/dL (13.5-17.5); Lymphocytes # (auto) 0.5 uL; Lymphocytes % (auto) 16.6 % (10.0-50.0); Mean Corpuscular Hemoglobin 29.8 pg (28.0-32.0); Mean Corpuscular Hgb Conc. 33.1 g/dL (32.0-36.0); Monocytes # (auto) 0.4 uL; Monocytes % (auto) 13.7 % (0.0-12.0); Neutrophils # (auto) 2.1 uL; Neutrophils % (auto) 67.3 % (37.0-80.0); Platelet Count (auto) 75 10^3/uL (140-450); Red Blood Cells 3.67 10^6/uL (4.5-5.90); Red Cell Distribution Width 15.4 % (11.8-14.3); White Blood Cell 3.2 10^3/uL (4.4-10.8)
[2018-04-05 13:32] LABS: Albumin 2.4 g/dL (3.4-5.0); Anion Gap 6 (5-15); Blood Urea Nitrogen 15 mg/dL (7-18); Calcium 7.4 mg/dL (8.5-10.1); Carbon Dioxide 25 mmol/L (21-32); Chloride 105 mmol/L (98-107); Glucose 255 mg/dL (74-106); Potassium 3.9 mmol/L (3.5-5.1); Sodium 136 mmol/L (136-145)
[2018-04-05 13:37] LABS: Alanine Aminotransferase 43 U/L (16-61); Alkaline Phosphatase 172 U/L (45-117); Aspartate Aminotransferase 42 U/L (15-37); BUN/Creatinine Ratio 12.4; Bilirubin, Total 0.6 mg/dL (0.2-1.0); GFR African American 78 mL/min; GFR Non-African American 65 mL/min; Total Protein 6.9 g/dL (6.4-8.2)
[2018-04-05 15:37] LABS: Urine Bacteria NONE SEEN /hpf (None Seen); Urine Blood 1+ /uL (Negative); Urine Hyaline Cast FEW /lpf (0 - 2); Urine Mucus FEW (None Seen); Urine WBC 3 /hpf (0 - 3)
[2018-04-05 16:47] VITALS: BP 156/75
== END 2018-04-05 17:13 | disposition home or self-care (01) ==
LOC: ER 12:07 → EDBD 12:07 → ER 17:13
DX: R42 Dizziness and giddiness (principal); E10.8 Type 1 diabetes mellitus with unspecified complications; I10 Essential (primary) hypertension; E78.5 Hyperlipidemia, unspecified; Z86.73 Personal history of transient ischemic attack (TIA), and cerebral infarction without residual deficits; Z79.4 Long term (current) use of insulin; Z79.899 Other long term (current) drug therapy; Z79.82 Long term (current) use of aspirin; Z90.49 Acquired absence of other specified parts of digestive tract
CPT/HCPCS: 36415; 70450; 80053; 81001; 84484; 85025; 93005; 99284; J8597

== ENCOUNTER → 2018-06-03 | Outpatient (CLI) | payer MEDICARE, MEDICAID ==
[~2018-06-03] MED LIST changes: +METO10TA3 PO; -NEOM500T PO; +ZIPR80CA9 PO
[2018-06-03 08:38] LABS: Basophils # (auto) 0 uL; Basophils % (auto) 0.3 % (0.0-2.0); Eosinophils # (auto) 0.1 uL; Eosinophils % (auto) 2.5 % (0.0-7.0); Hematocrit 34.1 % (41.0-53.0); Hemoglobin 11.5 g/dL (13.5-17.5); Lymphocytes # (auto) 0.7 uL; Lymphocytes % (auto) 15.4 % (10.0-50.0); Mean Corpuscular Hemoglobin 30.1 pg (28.0-32.0); Mean Corpuscular Hgb Conc. 33.7 g/dL (32.0-36.0); Mean Corpuscular Volume 89.5 fL (80.0-100.0); Monocytes # (auto) 0.4 uL; Monocytes % (auto) 10.1 % (0.0-12.0); Neutrophils # (auto) 3.1 uL; Neutrophils % (auto) 71.7 % (37.0-80.0); Nucleated Red Blood Cells % 0.1 %; Platelet Count (auto) 66 10^3/uL (140-450); Red Blood Cells 3.81 10^6/uL (4.5-5.90); Red Cell Distribution Width 17.1 % (11.8-14.3); White Blood Cell 4.3 10^3/uL (4.4-10.8)
[2018-06-03 09:12] LABS: Albumin 2.8 g/dL (3.4-5.0); Bilirubin, Total 0.5 mg/dL (0.2-1.0); Calcium 8.2 mg/dL (8.5-10.1); Total Protein 8.1 g/dL (6.4-8.2)
== END | disposition home or self-care (01) ==
LOC: LAB 08:16
PROVIDERS: ATTEND Internal Medicine
DX: D69.3 Immune thrombocytopenic purpura (principal)
CPT/HCPCS: 36415; 80053; 83615; 85025

== ENCOUNTER 2018-06-29 01:32 | Emergency (ER) | payer MEDICARE, MEDICAID ==
[~2018-06-29] VITALS: Ht 162.6 cm; Wt 72.6 kg
[2018-06-29 01:46] VITALS: BP 170/74
[2018-06-29 09:01] LABS: Basophils # (auto) 0 uL; Basophils % (auto) 0.3 % (0.0-2.0); Eosinophils # (auto) 0.1 uL; Eosinophils % (auto) 1.5 % (0.0-7.0); Hematocrit 33.9 % (41.0-53.0); Hemoglobin 11.4 g/dL (13.5-17.5); Lymphocytes # (auto) 0.7 uL; Lymphocytes % (auto) 15.3 % (10.0-50.0); Mean Corpuscular Hemoglobin 30.2 pg (28.0-32.0); Mean Corpuscular Hgb Conc. 33.7 g/dL (32.0-36.0); Mean Corpuscular Volume 89.7 fL (80.0-100.0); Monocytes # (auto) 0.3 uL; Monocytes % (auto) 6.5 % (0.0-12.0); Neutrophils # (auto) 3.6 uL; Neutrophils % (auto) 76.4 % (37.0-80.0); Nucleated Red Blood Cells % 0.1 %; Platelet Count (auto) 82 10^3/uL (140-450); Red Blood Cells 3.79 10^6/uL (4.5-5.90); Red Cell Distribution Width 16.8 % (11.8-14.3); White Blood Cell 4.7 10^3/uL (4.4-10.8)
[2018-06-29 09:18] LABS: Albumin 3.1 g/dL (3.4-5.0); Calcium 8.4 mg/dL (8.5-10.1); Potassium 4.3 mmol/L (3.5-5.1)
[2018-06-29 09:20] LABS: BUN/Creatinine Ratio 11.9
[2018-06-29 09:23] LABS: Bilirubin, Total 0.7 mg/dL (0.2-1.0); Total Protein 8.3 g/dL (6.4-8.2)
== END 2018-06-29 09:54 | disposition home or self-care (01) ==
LOC: ER 01:32 → EDBD 01:32 → ER 09:54
DX: J02.9 Acute pharyngitis, unspecified (principal); D64.9 Anemia, unspecified; R42 Dizziness and giddiness; R68.2 Dry mouth, unspecified; E11.9 Type 2 diabetes mellitus without complications; E78.5 Hyperlipidemia, unspecified; I10 Essential (primary) hypertension; Z79.899 Other long term (current) drug therapy; Z79.82 Long term (current) use of aspirin; Z79.4 Long term (current) use of insulin; Z86.73 Personal history of transient ischemic attack (TIA), and cerebral infarction without residual deficits; Z90.49 Acquired absence of other specified parts of digestive tract
CPT/HCPCS: 36415; 70450; 80053; 85025; 93005

== ENCOUNTER → 2018-12-02 | Outpatient (CLI) | payer MEDICARE, MEDICAID ==
[~2018-12-02] MED LIST changes: +ERGO1CAP6 PO; -GLIP-115 PO; +GLIP5TAB12 PO
[2018-12-02 11:44] LABS: Basophils # (auto) 0 uL; Eosinophils # (auto) 0.1 uL; Hemoglobin 11.7 g/dL (13.5-17.5); Mean Corpuscular Hemoglobin 32.3 pg (28.0-32.0); Monocytes # (auto) 0.3 uL; Platelet Count (auto) 64 10^3/uL (140-450)
[2018-12-02 11:47] LABS: Basophils % (auto) 0.3 % (0.0-2.0); Eosinophils % (auto) 2.6 % (0.0-7.0); Hematocrit 34.5 % (41.0-53.0); Lymphocytes # (auto) 0.5 uL; Lymphocytes % (auto) 14.7 % (10.0-50.0); Mean Corpuscular Hgb Conc. 33.8 g/dL (32.0-36.0); Mean Corpuscular Volume 95.3 fL (80.0-100.0); Monocytes % (auto) 7.5 % (0.0-12.0); Neutrophils # (auto) 2.7 uL; Neutrophils % (auto) 74.9 % (37.0-80.0); Red Blood Cells 3.62 10^6/uL (4.5-5.90); White Blood Cell 3.6 10^3/uL (4.4-10.8)
[2018-12-02 12:15] LABS: % Iron Saturation 27.4 % (20-55)
[2018-12-02 12:22] LABS: BUN/Creatinine Ratio 12.9; Potassium 4.4 mmol/L (3.5-5.1)
[2018-12-02 12:24] LABS: Folate (Folic Acid) 11.66 ng/mL (5.38-24)
[2018-12-02 12:25] LABS: Bilirubin, Total 0.8 mg/dL (0.2-1.0); Total Protein 7.6 g/dL (6.4-8.2)
== END | disposition home or self-care (01) ==
LOC: LAB 11:05
PROVIDERS: ATTEND Internal Medicine
DX: D69.3 Immune thrombocytopenic purpura (principal)
CPT/HCPCS: 36415; 80053; 82607; 82728; 82746; 83540; 83550; 85025

== ENCOUNTER → 2019-04-02 | Outpatient (CLI) | payer MEDICARE, MEDICAID ==
[~2019-04-02] MED LIST changes: -BENZ0.5T14 PO; +BENZ0.5T19 PO; +DOCU-94 PO; -METO10TA3 PO; +RIFA550T PO; -ZIPR80CA9 PO
[2019-04-02 12:31] LABS: Basophils # (auto) 0 uL; Basophils % (auto) 0.4 % (0.0-2.0); Eosinophils # (auto) 0 uL; Eosinophils % (auto) 1.5 % (0.0-7.0); Hemoglobin 11.7 g/dL (13.5-17.5); Lymphocytes # (auto) 0.6 uL; Monocytes # (auto) 0.2 uL; Nucleated Red Blood Cells % 0.1 %; White Blood Cell 2.9 10^3/uL (4.4-10.8)
[2019-04-02 12:32] LABS: Hematocrit 33.7 % (41.0-53.0); Lymphocytes % (auto) 21.3 % (10.0-50.0); Mean Corpuscular Hgb Conc. 34.7 g/dL (32.0-36.0); Mean Corpuscular Volume 95.1 fL (80.0-100.0); Monocytes % (auto) 7.7 % (0.0-12.0); Neutrophils % (auto) 69.1 % (37.0-80.0); Red Blood Cells 3.54 10^6/uL (4.5-5.90); Red Cell Distribution Width 14.6 % (11.8-14.3)
[2019-04-02 12:47] LABS: Albumin 2.7 g/dL (3.4-5.0); Calcium 8.5 mg/dL (8.5-10.1); Potassium 4.2 mmol/L (3.5-5.1)
[2019-04-02 12:49] LABS: BUN/Creatinine Ratio 16.3; Bilirubin, Total 0.6 mg/dL (0.2-1.0)
[2019-04-02 13:09] LABS: Platelet Count (auto) 65 10^3/uL (140-450)
== END | disposition home or self-care (01) ==
LOC: LAB 12:18
PROVIDERS: ATTEND Internal Medicine
DX: D69.3 Immune thrombocytopenic purpura (principal)
CPT/HCPCS: 36415; 80053; 83615; 85025

== ENCOUNTER → 2019-11-06 | Emergency (ER) | payer MEDICARE, MEDICAID ==
[~2019-11-06] VITALS: Ht 162.6 cm; Wt 81.6 kg
[~2019-11-06] MED LIST changes: -ASP81EC PO; +ASPI-394 PO; +ERGO1CAP12 PO; -ERGO1CAP6 PO; +FUROSEMIDE 20 MG/2 ML VIAL IV ONE; +SPIRONOLACTONE 25 MG TAB PO ONE
[2019-11-06 23:00] LABS: Basophils # (auto) 0 10 ^3/uL (0-0.2); Eosinophils # (auto) 0.1 10 ^3/uL (0-0.8); Hemoglobin 10.9 g/dL (13.5-17.5); Lymphocytes # (auto) 0.6 10 ^3/uL (0.4-5.4); Monocytes # (auto) 0.3 10 ^3/uL (0-1.3); Neutrophils # (auto) 1.8 10 ^3/uL (1.6-8.6); Neutrophils % (auto) 64.3 % (37.0-80.0); White Blood Cell 2.8 10^3/uL (4.4-10.8)
[2019-11-06 23:02] LABS: Basophils % (auto) 0.5 % (0.0-2.0); Eosinophils % (auto) 3.4 % (0.0-7.0); Hematocrit 32.4 % (41.0-53.0); Lymphocytes % (auto) 21.3 % (10.0-50.0); Mean Corpuscular Hemoglobin 32.7 pg (28.0-32.0); Mean Corpuscular Hgb Conc. 33.6 g/dL (32.0-36.0); Mean Corpuscular Volume 97.4 fL (80.0-100.0); Monocytes % (auto) 10.5 % (0.0-12.0); Platelet Count (auto) 48 10^3/uL (140-450); Red Blood Cells 3.32 10^6/uL (4.5-5.90); Red Cell Distribution Width 17.4 % (11.8-14.3)
[2019-11-06 23:22] LABS: Alanine Aminotransferase 262 U/L (16-61); Albumin 2.6 g/dL (3.4-5.0); Anion Gap 3 (5-15); Blood Urea Nitrogen 16 mg/dL (7-18); Calcium 7.7 mg/dL (8.5-10.1); Carbon Dioxide 26 mmol/L (21-32); Chloride 114 mmol/L (98-107); Glucose 207 mg/dL (74-106); Sodium 143 mmol/L (136-145)
[2019-11-06 23:27] LABS: Alkaline Phosphatase 270 U/L (45-117); Aspartate Aminotransferase 284 U/L (15-37); BUN/Creatinine Ratio 12.1; Bilirubin, Total 0.5 mg/dL (0.2-1.0); GFR African American 70 mL/min; GFR Non-African American 58 mL/min
[2019-11-07] VITALS: BP 115/61
== END | disposition home or self-care (01) ==
LOC: EDUNIT# 21:24 → EDBD 21:32 → ER 21:33
DX: R60.9 Edema, unspecified (principal); K74.60 Unspecified cirrhosis of liver; E11.9 Type 2 diabetes mellitus without complications; E78.5 Hyperlipidemia, unspecified; I10 Essential (primary) hypertension; Z86.73 Personal history of transient ischemic attack (TIA), and cerebral infarction without residual deficits; Z20.828 Contact with and (suspected) exposure to other viral communicable diseases
CPT/HCPCS: 36415; 71045; 80053; 83880; 84484; 85025; 87426; 93005; 96374; 99285; J1940

== ENCOUNTER 2020-02-25 02:05 | Emergency (ER) | payer MEDICARE, MEDICAID ==
[~2020-02-25] VITALS: Ht 165.1 cm; Wt 90.7 kg
[~2020-02-25 02:05] MED LIST changes: -FUROSEMIDE 20 MG/2 ML VIAL IV ONE; -SPIRONOLACTONE 25 MG TAB PO ONE
[2020-02-25] MEDS ORDERED: SODIUM CHLORIDE 0.9% 1,000 ML IVB ONE (02:30)
[2020-02-25 03:21] VITALS: BP 121/59
[2020-02-25 03:28] LABS: Basophils # (auto) 0 10 ^3/uL (0-0.2); Eosinophils # (auto) 0 10 ^3/uL (0-0.8); Hematocrit 26.1 % (41.0-53.0); Hemoglobin 8.5 g/dL (13.5-17.5); Lymphocytes # (auto) 0.4 10 ^3/uL (0.4-5.4); Lymphocytes % (auto) 5.4 % (10.0-50.0); Mean Corpuscular Hemoglobin 32.5 pg (28.0-32.0); Mean Corpuscular Hgb Conc. 32.6 g/dL (32.0-36.0); Mean Corpuscular Volume 99.7 fL (80.0-100.0); Monocytes # (auto) 0.6 10 ^3/uL (0-1.3); Monocytes % (auto) 9.4 % (0.0-12.0); Neutrophils # (auto) 5.9 10 ^3/uL (1.6-8.6); Neutrophils % (auto) 85.2 % (37.0-80.0); Platelet Count (auto) 55 10^3/uL (140-450); Red Blood Cells 2.62 10^6/uL (4.5-5.90); Red Cell Distribution Width 14.5 % (11.8-14.3); White Blood Cell 6.9 10^3/uL (4.4-10.8)
[2020-02-25 03:52] LABS: INR 1.15 (0.9-1.15); Partial Thromboplastin Time 24.5 sec (23.0-31.2)
[2020-02-25 03:55] LABS: Albumin 2.6 g/dL (3.4-5.0); BUN/Creatinine Ratio 16.9; Calcium 7.7 mg/dL (8.5-10.1); Potassium 5.3 mmol/L (3.5-5.1)
[2020-02-25 03:57] LABS: Bilirubin, Total 0.8 mg/dL (0.2-1.0); Total Protein 6.2 g/dL (6.4-8.2)
[2020-02-25] MEDS ORDERED: InsuLIN REG 1unit/0.01ml Soln (100units/ml) IV ONE (06:00)
== END 2020-02-25 06:23 | disposition home or self-care (01) ==
LOC: EDBD 02:05 → ER 02:11
DX: L76.22 Postprocedural hemorrhage of skin and subcutaneous tissue following other procedure (principal); E11.9 Type 2 diabetes mellitus without complications; E78.5 Hyperlipidemia, unspecified; I10 Essential (primary) hypertension; Z90.49 Acquired absence of other specified parts of digestive tract; Z86.73 Personal history of transient ischemic attack (TIA), and cerebral infarction without residual deficits; Z79.4 Long term (current) use of insulin
CPT/HCPCS: 36415; 80053; 85025; 85610; 85730; 93005; 96360; 99284; J7030

== ENCOUNTER 2020-11-24 17:32 | Inpatient (IN) | payer MEDICARE, MEDICAID ==
[~2020-11-24] VITALS: Ht 162.6 cm; Wt 74.0 kg
[~2020-11-24 17:32] MED LIST changes: +ZIPR80CA37 PO; -ZIPR80CA8 PO
[2020-11-24] MEDS ORDERED: SODIUM CHLORIDE 0.9% 1,000 ML IV ONE (18:45)
[2020-11-24 18:56] LABS: Basophils # (auto) 0 10 ^3/uL (0-0.2); Eosinophils # (auto) 0 10 ^3/uL (0-0.8); Hemoglobin 9.5 g/dL (13.5-17.5); Lymphocytes # (auto) 0.4 10 ^3/uL (0.4-5.4); Monocytes # (auto) 0.4 10 ^3/uL (0-1.3); Red Cell Distribution Width 13.9 % (11.8-14.3)
[2020-11-24 18:58] LABS: Basophils % (auto) 0.3 % (0.0-2.0); Eosinophils % (auto) 1.3 % (0.0-7.0); Hematocrit 27.3 % (41.0-53.0); Lymphocytes % (auto) 13.7 % (10.0-50.0); Mean Corpuscular Hemoglobin 32.9 pg (28.0-32.0); Mean Corpuscular Hgb Conc. 34.9 g/dL (32.0-36.0); Mean Corpuscular Volume 94.1 fL (80.0-100.0); Monocytes % (auto) 11.6 % (0.0-12.0); Neutrophils # (auto) 2.3 10 ^3/uL (1.6-8.6); Neutrophils % (auto) 73.1 % (37.0-80.0); Nucleated Red Blood Cells % 0.2 %; White Blood Cell 3.2 10^3/uL (4.4-10.8)
[2020-11-24 19:10] LABS: Albumin 1.8 g/dL (3.4-5.0); Anion Gap 9 (5-15); Calcium 7.3 mg/dL (8.5-10.1); Carbon Dioxide 22 mmol/L (21-32); Chloride 103 mmol/L (98-107); Sodium 134 mmol/L (136-145)
[2020-11-24 19:15] LABS: Magnesium 2.1 mg/dL (1.6-2.6)
[2020-11-24 19:17] LABS: INR 1.16 (0.9-1.15)
[2020-11-24 19:18] LABS: Alanine Aminotransferase 40 U/L (16-61); Alkaline Phosphatase 183 U/L (45-117); Aspartate Aminotransferase 36 U/L (15-37); BUN/Creatinine Ratio 18.3; Bilirubin, Total 0.4 mg/dL (0.2-1.0); Blood Urea Nitrogen 33 mg/dL (7-18); GFR African American 49 mL/min; GFR Non-African American 41 mL/min; Total Protein 6.3 g/dL (6.4-8.2)
[2020-11-24 19:20] LABS: Lactic Acid w/Reflex 2.1 mmol/L (0.4-2.0)
[2020-11-24 19:31] LABS: Glucose 422 mg/dL (74-106)
[2020-11-24] MEDS ORDERED: CEFTRIAXONE SODIUM 2 GM in D5W 5% 50 ML IV ONE (19:45)
[2020-11-24] MEDS ORDERED: InsuLIN REG 1unit/0.01ml Soln (100units/ml) IV ONE (20:45)
[2020-11-24 21:24] LABS: Urine Bacteria NONE SEEN /hpf (None Seen); Urine Blood Negative /uL (Negative); Urine Hyaline Cast FEW /lpf (0 - 2); Urine Specific Gravity 1.007 (1.001-1.035); Urine WBC <1 /hpf (0 - 3)
[2020-11-25] MEDS ORDERED: NITROGLYCERIN 0.4 MG SL TAB SL PRN (02:30)
[2020-11-25] MEDS ORDERED: ONDANSETRON HCL 4 MG/2 ML VIAL IV PRN (02:30)
[2020-11-25] MEDS ORDERED: MORPHINE SULFATE INJECTION 2 MG/ML SYRG IV PRN (02:30)
[2020-11-25] MEDS ORDERED: DEXTROSE (50%) 50ML SYRG IV PRN (02:30)
[2020-11-25] MEDS ORDERED: ALBUMIN 25% 50 ML IV ONE (03:00)
[2020-11-25] MEDS ORDERED: POTASSIUM CHL 20 Meq TABLET PO ONE (03:00)
[2020-11-25 04:25] LABS: Basophils # (auto) 0 10 ^3/uL (0-0.2); Basophils % (auto) 0.5 % (0.0-2.0); Eosinophils # (auto) 0.2 10 ^3/uL (0-0.8); Eosinophils % (auto) 3.3 % (0.0-7.0); Hematocrit 32.9 % (41.0-53.0); Hemoglobin 11.4 g/dL (13.5-17.5); Lymphocytes # (auto) 0.7 10 ^3/uL (0.4-5.4); Mean Corpuscular Hemoglobin 32.7 pg (28.0-32.0); Mean Corpuscular Hgb Conc. 34.7 g/dL (32.0-36.0); Mean Corpuscular Volume 94.3 fL (80.0-100.0); Monocytes # (auto) 0.6 10 ^3/uL (0-1.3); Monocytes % (auto) 11.1 % (0.0-12.0); Neutrophils # (auto) 3.6 10 ^3/uL (1.6-8.6); Neutrophils % (auto) 71.1 % (37.0-80.0); Red Blood Cells 3.49 10^6/uL (4.5-5.90); Red Cell Distribution Width 13.9 % (11.8-14.3)
[2020-11-25 04:37] LABS: Potassium 3.3 mmol/L (3.5-5.1)
[2020-11-25 04:46] LABS: Albumin 2.1 g/dL (3.4-5.0); BUN/Creatinine Ratio 19.7; Calcium 7.8 mg/dL (8.5-10.1)
[2020-11-25 04:50] LABS: Bilirubin, Total 0.4 mg/dL (0.2-1.0); Total Protein 7.2 g/dL (6.4-8.2)
[2020-11-25 05:00] VITALS: BP 129/70
[2020-11-25] MEDS: LACTULOSE 20Gm/30ML SOLN PO SCH ×3 (06:11→22:01)
[2020-11-25] MEDS: SODIUM CHLOR 0.9% PF (SALINE LOCK) 10ML VIAL/SYR IV SCH ×3 (06:11→22:01)
[2020-11-25] MEDS: ACCU-CHEK COMFORT CURVE STRIP VI SCH ×4 (06:12→22:04)
[2020-11-25] MEDS: MORPHINE SULFATE 4 MG/ML SYR/VIAL IV PRN ×2 (06:16→12:20)
[2020-11-25] MEDS: InsuLIN REG 1unit/0.01ml Soln (100units/ml) SC SCH ×4 (06:16→22:00)
[2020-11-25] MEDS ORDERED: INSULIN LANTUS (GLARGINE) 1 /0.01ml (100units/ml) SC SCH (07:00)
[2020-11-25 08:00] VITALS: BP 142/84
[2020-11-25] MEDS ORDERED: TAMS0.4C36 PO (08:34)
[2020-11-25] MEDS ORDERED: FER325T PO (08:34)
[2020-11-25] MEDS ORDERED: DOCU100T15 PO (08:34)
[2020-11-25] MEDS ORDERED: LORA-622 PO (08:34)
[2020-11-25] MEDS ORDERED: FAMO-12 PO (08:34)
[2020-11-25] MEDS ORDERED: MECL25CH38 PO (08:34)
[2020-11-25] MEDS ORDERED: CLON0.1T PO (08:34)
[2020-11-25] MEDS ORDERED: FURO40TA4 PO (08:34)
[2020-11-25] MEDS ORDERED: ASCO500T11 PO (08:34)
[2020-11-25] MEDS ORDERED: INSLANTI SC (08:34)
[2020-11-25 09:00] VITALS: BP 142/81
[2020-11-25] MEDS: ASPirin 81 mg TAB PO SCH (09:08)
[2020-11-25] MEDS: cefTRIAXone 1GM/50ML D5W 50 ML IV SCH (09:08)
[2020-11-25] MEDS: ASCORBIC ACID 500 MG TAB PO SCH ×2 (09:09→22:04)
[2020-11-25] MEDS: MULTIPLE VITAMIN TAB PO SCH (09:09)
[2020-11-25] MEDS: ZINC SULFATE 220mg CAP or TAB PO SCH (09:09)
[2020-11-25 13:00] VITALS: BP 163/86
[2020-11-25] MEDS ORDERED: VANCOMYCIN PER PHARMACY 0 MG IV SCH (14:45)
[2020-11-25] MEDS ORDERED: VANCOMYCIN 1GM/250ML 250 ML IV ONE (15:15)
[2020-11-25] MEDS ORDERED: SPIRONOLACTONE 25 MG TAB PO ONE (15:30)
[2020-11-25 17:00] VITALS: BP 173/79
[2020-11-25] MEDS: TAMSULOSIN HYDROCHLORIDE 0.4 MG CAP PO SCH (17:17)
[2020-11-25] MEDS: FUROSEMIDE 40 MG TAB PO SCH (17:17)
[2020-11-25] MEDS: INSULIN LANTUS (GLARGINE) 1 /0.01ml (100units/ml) SC SCH (17:53)
[2020-11-25 22:00] VITALS: BP 165/80
[2020-11-25] MEDS ORDERED: PATIENTS OWN MEDICATION PO SCH (22:00)
[2020-11-25] MEDS ORDERED: LACTULOSE 20Gm/30ML SOLN PO SCH ×2 (22:00)
[2020-11-25] MEDS: ZIPRASIDONE 80 MG PO SCH (22:02)
[2020-11-25] MEDS: MECLIZINE HCL 25 MG TAB PO SCH (22:02)
[2020-11-25] MEDS: DOCUSATE SOD 100 MG CAP PO SCH (22:03)
[2020-11-25] MEDS: ATORVASTATIN 20 MG TAB PO SCH (22:03)
[2020-11-25] MEDS: FAMOTIDINE 20 MG TAB PO SCH (22:03)
[2020-11-25] MEDS: cloNIDine HCL 0.1 MG TAB PO SCH (22:03)
[2020-11-25] MEDS: rifAXIMin 550 MG TAB PO SCH (22:04)
[2020-11-26 05:00] VITALS: BP 135/73
[2020-11-26 05:57] LABS: Albumin 1.8 g/dL (3.4-5.0); BUN/Creatinine Ratio 19.6; Calcium 7.6 mg/dL (8.5-10.1); Potassium 3.6 mmol/L (3.5-5.1)
[2020-11-26 05:58] LABS: Basophils # (auto) 0 10 ^3/uL (0-0.2); Basophils % (auto) 0.3 % (0.0-2.0); Eosinophils # (auto) 0.1 10 ^3/uL (0-0.8); Eosinophils % (auto) 3.6 % (0.0-7.0); Hematocrit 30.3 % (41.0-53.0); Hemoglobin 10.5 g/dL (13.5-17.5); Lymphocytes # (auto) 0.6 10 ^3/uL (0.4-5.4); Lymphocytes % (auto) 18.7 % (10.0-50.0); Mean Corpuscular Hemoglobin 32.9 pg (28.0-32.0); Mean Corpuscular Hgb Conc. 34.6 g/dL (32.0-36.0); Mean Corpuscular Volume 94.9 fL (80.0-100.0); Monocytes # (auto) 0.3 10 ^3/uL (0-1.3); Monocytes % (auto) 10.9 % (0.0-12.0); Neutrophils # (auto) 2.1 10 ^3/uL (1.6-8.6); Neutrophils % (auto) 66.5 % (37.0-80.0); Red Blood Cells 3.19 10^6/uL (4.5-5.90); Red Cell Distribution Width 14.2 % (11.8-14.3); White Blood Cell 3.1 10^3/uL (4.4-10.8)
[2020-11-26 05:59] LABS: Bilirubin, Total 0.4 mg/dL (0.2-1.0); Total Protein 6.3 g/dL (6.4-8.2)
[2020-11-26] MEDS: LACTULOSE 20Gm/30ML SOLN PO SCH ×4 (06:51→22:37)
[2020-11-26] MEDS: SODIUM CHLOR 0.9% PF (SALINE LOCK) 10ML VIAL/SYR IV SCH ×3 (06:51→22:36)
[2020-11-26] MEDS: cloNIDine HCL 0.1 MG TAB PO SCH (06:52)
[2020-11-26] MEDS: FUROSEMIDE 40 MG TAB PO SCH ×2 (06:53→17:46)
[2020-11-26] MEDS: InsuLIN REG 1unit/0.01ml Soln (100units/ml) SC SCH ×4 (06:54→22:52)
[2020-11-26] MEDS: ACCU-CHEK COMFORT CURVE STRIP VI SCH ×4 (06:55→22:52)
[2020-11-26] MEDS: INSULIN LANTUS (GLARGINE) 1 /0.01ml (100units/ml) SC SCH ×2 (06:55→17:53)
[2020-11-26 09:00] VITALS: BP 112/55
[2020-11-26] MEDS ORDERED: VANCOMYCIN 1GM/250ML 250 ML IV SCH (10:00)
[2020-11-26] MEDS: cefTRIAXone 1GM/50ML D5W 50 ML IV SCH (11:04)
[2020-11-26] MEDS: CITALOPRAM HYDROBR 20 MG TAB PO SCH (11:06)
[2020-11-26] MEDS: ASPirin 81 mg TAB PO SCH (11:06)
[2020-11-26] MEDS: FERROUS SULFATE 325mg EC TAB PO SCH (11:07)
[2020-11-26] MEDS: SPIRONOLACTONE 25 MG TAB PO SCH (11:07)
[2020-11-26] MEDS: LORATADINE 10 MG TAB PO SCH (11:07)
[2020-11-26] MEDS: rifAXIMin 550 MG TAB PO SCH ×2 (11:07→22:40)
[2020-11-26] MEDS: ASCORBIC ACID 500 MG TAB PO SCH ×2 (11:08→22:40)
[2020-11-26] MEDS: FAMOTIDINE 20 MG TAB PO SCH ×2 (11:08→22:39)
[2020-11-26] MEDS: MULTIPLE VITAMIN TAB PO SCH (11:08)
[2020-11-26] MEDS: MECLIZINE HCL 25 MG TAB PO SCH ×2 (11:08→22:37)
[2020-11-26] MEDS: glipiZIDE 5 MG TAB PO SCH (11:08)
[2020-11-26] MEDS: DOCUSATE SOD 100 MG CAP PO SCH ×2 (11:08→22:38)
[2020-11-26] MEDS: ALBUMIN 25% 100 ML IV SCH ×2 (11:10→17:47)
[2020-11-26] MEDS: ZIPRASIDONE 80 MG PO SCH ×2 (12:05→22:37)
[2020-11-26 13:00] VITALS: BP 151/69
[2020-11-26] MEDS: ZINC SULFATE 220mg CAP or TAB PO SCH (15:14)
[2020-11-26 17:00] VITALS: BP 127/70
[2020-11-26] MEDS: TAMSULOSIN HYDROCHLORIDE 0.4 MG CAP PO SCH (17:46)
[2020-11-26 22:04] VITALS: BP 153/70
[2020-11-26] MEDS: ATORVASTATIN 20 MG TAB PO SCH (22:38)
[2020-11-27] MEDS: ALBUMIN 25% 100 ML IV SCH (02:39)
[2020-11-27] MEDS: LACTULOSE 20Gm/30ML SOLN PO SCH ×4 (02:59→22:48)
[2020-11-27 05:00] VITALS: BP 157/76
[2020-11-27] MEDS: SODIUM CHLOR 0.9% PF (SALINE LOCK) 10ML VIAL/SYR IV SCH ×3 (05:47→22:48)
[2020-11-27] MEDS: ACCU-CHEK COMFORT CURVE STRIP VI SCH ×4 (05:48→22:41)
[2020-11-27] MEDS: FUROSEMIDE 40 MG TAB PO SCH (05:48)
[2020-11-27] MEDS: InsuLIN REG 1unit/0.01ml Soln (100units/ml) SC SCH ×4 (05:51→22:55)
[2020-11-27] MEDS: INSULIN LANTUS (GLARGINE) 1 /0.01ml (100units/ml) SC SCH ×2 (05:52→18:34)
[2020-11-27 09:00] VITALS: BP 138/79
[2020-11-27] MEDS: cefTRIAXone 1GM/50ML D5W 50 ML IV SCH (09:14)
[2020-11-27] MEDS: SPIRONOLACTONE 25 MG TAB PO SCH (09:17)
[2020-11-27] MEDS: ZINC SULFATE 220mg CAP or TAB PO SCH (09:17)
[2020-11-27] MEDS: MECLIZINE HCL 25 MG TAB PO SCH ×2 (09:17→22:49)
[2020-11-27] MEDS: ASPirin 81 mg TAB PO SCH (09:17)
[2020-11-27] MEDS: ASCORBIC ACID 500 MG TAB PO SCH ×2 (09:18→22:51)
[2020-11-27] MEDS: DOCUSATE SOD 100 MG CAP PO SCH ×2 (09:18→22:49)
[2020-11-27] MEDS: FAMOTIDINE 20 MG TAB PO SCH ×2 (09:18→22:51)
[2020-11-27] MEDS: FERROUS SULFATE 325mg EC TAB PO SCH (09:18)
[2020-11-27] MEDS: CITALOPRAM HYDROBR 20 MG TAB PO SCH (09:18)
[2020-11-27] MEDS: rifAXIMin 550 MG TAB PO SCH ×2 (09:19→22:51)
[2020-11-27] MEDS: glipiZIDE 5 MG TAB PO SCH (09:19)
[2020-11-27] MEDS: LORATADINE 10 MG TAB PO SCH (09:19)
[2020-11-27] MEDS: MULTIPLE VITAMIN TAB PO SCH (09:19)
[2020-11-27] MEDS: ZIPRASIDONE 80 MG PO SCH ×2 (09:26→23:06)
[2020-11-27 13:00] VITALS: BP 152/75
[2020-11-27 17:00] VITALS: BP 136/67
[2020-11-27] MEDS: TAMSULOSIN HYDROCHLORIDE 0.4 MG CAP PO SCH (18:06)
[2020-11-27] MEDS: FUROSEMIDE 20 MG/2 ML VIAL IV SCH (18:07)
[2020-11-27 22:00] VITALS: BP 145/78
[2020-11-27] MEDS: ATORVASTATIN 20 MG TAB PO SCH (22:50)
[2020-11-28] MEDS: LACTULOSE 20Gm/30ML SOLN PO SCH ×4 (04:35→21:51)
[2020-11-28 05:00] VITALS: BP 150/61
[2020-11-28] MEDS: FUROSEMIDE 20 MG/2 ML VIAL IV SCH ×2 (06:24→19:00)
[2020-11-28] MEDS: SODIUM CHLOR 0.9% PF (SALINE LOCK) 10ML VIAL/SYR IV SCH ×3 (06:24→22:00)
[2020-11-28] MEDS: InsuLIN REG 1unit/0.01ml Soln (100units/ml) SC SCH ×4 (06:28→21:58)
[2020-11-28] MEDS: INSULIN LANTUS (GLARGINE) 1 /0.01ml (100units/ml) SC SCH ×2 (06:38→19:00)
[2020-11-28] MEDS: ACCU-CHEK COMFORT CURVE STRIP VI SCH ×4 (06:47→21:55)
[2020-11-28] MEDS: cefTRIAXone 1GM/50ML D5W 50 ML IV SCH (10:02)
[2020-11-28] MEDS: LORATADINE 10 MG TAB PO SCH (10:05)
[2020-11-28] MEDS: MECLIZINE HCL 25 MG TAB PO SCH ×2 (10:06→21:51)
[2020-11-28] MEDS: DOCUSATE SOD 100 MG CAP PO SCH ×2 (10:06→21:51)
[2020-11-28] MEDS: MULTIPLE VITAMIN TAB PO SCH (10:06)
[2020-11-28] MEDS: rifAXIMin 550 MG TAB PO SCH ×2 (10:06→21:51)
[2020-11-28] MEDS: CITALOPRAM HYDROBR 20 MG TAB PO SCH (10:06)
[2020-11-28] MEDS: FERROUS SULFATE 325mg EC TAB PO SCH (10:07)
[2020-11-28] MEDS: ASPirin 81 mg TAB PO SCH (10:07)
[2020-11-28] MEDS: ASCORBIC ACID 500 MG TAB PO SCH ×2 (10:07→21:51)
[2020-11-28] MEDS: FAMOTIDINE 20 MG TAB PO SCH (10:09)
[2020-11-28] MEDS: ZINC SULFATE 220mg CAP or TAB PO SCH (10:16)
[2020-11-28] MEDS: SPIRONOLACTONE 25 MG TAB PO SCH (10:16)
[2020-11-28] MEDS: ZIPRASIDONE 80 MG PO SCH ×2 (10:16→21:52)
[2020-11-28] MEDS: glipiZIDE 5 MG TAB PO SCH (10:17)
[2020-11-28 13:00] VITALS: BP 163/88
[2020-11-28 17:02] VITALS: BP 142/68
[2020-11-28] MEDS: TAMSULOSIN HYDROCHLORIDE 0.4 MG CAP PO SCH (19:00)
[2020-11-28] MEDS: ATORVASTATIN 20 MG TAB PO SCH (21:50)
[2020-11-28 22:00] VITALS: BP 148/73
[2020-11-29 05:00] VITALS: BP 144/68
[2020-11-29] MEDS: SODIUM CHLOR 0.9% PF (SALINE LOCK) 10ML VIAL/SYR IV SCH ×2 (06:38→14:00)
[2020-11-29] MEDS: FUROSEMIDE 20 MG/2 ML VIAL IV SCH (06:38)
[2020-11-29] MEDS: LACTULOSE 20Gm/30ML SOLN PO SCH ×2 (06:39→10:46)
[2020-11-29] MEDS: InsuLIN REG 1unit/0.01ml Soln (100units/ml) SC SCH ×2 (06:40→12:48)
[2020-11-29] MEDS: ACCU-CHEK COMFORT CURVE STRIP VI SCH ×2 (06:52→11:24)
[2020-11-29] MEDS: INSULIN LANTUS (GLARGINE) 1 /0.01ml (100units/ml) SC SCH (06:52)
[2020-11-29 08:02] LABS: Potassium 3.7 mmol/L (3.5-5.1)
[2020-11-29 08:31] LABS: BUN/Creatinine Ratio 26.6; Calcium 8.1 mg/dL (8.5-10.1)
[2020-11-29 09:00] VITALS: BP 142/75
[2020-11-29] MEDS ORDERED: levoFLOXacin 250 MG TAB PO SCH (10:00)
[2020-11-29] MEDS ORDERED: FAMOTIDINE 20 MG TAB PO SCH (10:00)
[2020-11-29] MEDS: DOCUSATE SOD 100 MG CAP PO SCH (10:00)
[2020-11-29] MEDS: ASPirin 81 mg TAB PO SCH (10:44)
[2020-11-29] MEDS: FERROUS SULFATE 325mg EC TAB PO SCH (10:45)
[2020-11-29] MEDS: ZINC SULFATE 220mg CAP or TAB PO SCH (10:46)
[2020-11-29] MEDS: MECLIZINE HCL 25 MG TAB PO SCH (10:48)
[2020-11-29] MEDS: SPIRONOLACTONE 25 MG TAB PO SCH (10:48)
[2020-11-29] MEDS: CITALOPRAM HYDROBR 20 MG TAB PO SCH (10:49)
[2020-11-29] MEDS: LORATADINE 10 MG TAB PO SCH (10:50)
[2020-11-29] MEDS: MULTIPLE VITAMIN TAB PO SCH (10:52)
[2020-11-29] MEDS: rifAXIMin 550 MG TAB PO SCH (10:54)
[2020-11-29] MEDS: ASCORBIC ACID 500 MG TAB PO SCH (10:54)
[2020-11-29] MEDS: ZIPRASIDONE 80 MG PO SCH (11:22)
[2020-11-29] MEDS: glipiZIDE 5 MG TAB PO SCH (11:22)
[2020-11-29 12:36] VITALS: BP 168/84
[2020-11-29 13:38] VITALS: BP 144/68
== END 2020-11-29 14:30 | disposition home or self-care (01) | DRG 432 ==
LOC: ER 17:32 → EDBD 17:32 → OVERFLOW 11-25 02:25 → CENTRAL 11-25 04:25 → TELE-CENTR 11-25 15:26
PROVIDERS: ADMIT Specialist; ATTEND Specialist
PROC: 0W9G3ZZ Drainage of Peritoneal Cavity, Percutaneous Approach (ICD-10-PCS; principal; 2020-11-25)
DX: K74.60 Unspecified cirrhosis of liver (principal); E43 Unspecified severe protein-calorie malnutrition; N17.0 Acute kidney failure with tubular necrosis; D61.818 Other pancytopenia; E87.1 Hypo-osmolality and hyponatremia; I13.0 Hypertensive heart and chronic kidney disease with heart failure and stage 1 through stage 4 chronic kidney disease, or unspecified chronic kidney disease; R18.8 Other ascites; K76.6 Portal hypertension; E11.65 Type 2 diabetes mellitus with hyperglycemia; E88.09 Other disorders of plasma-protein metabolism, not elsewhere classified; E87.8 Other disorders of electrolyte and fluid balance, not elsewhere classified; Z20.822 Contact with and (suspected) exposure to COVID-19; D63.8 Anemia in other chronic diseases classified elsewhere; E11.22 Type 2 diabetes mellitus with diabetic chronic kidney disease; Z68.28 Body mass index [BMI] 28.0-28.9, adult; E78.00 Pure hypercholesterolemia, unspecified; E78.5 Hyperlipidemia, unspecified; E87.6 Hypokalemia; F25.9 Schizoaffective disorder, unspecified; I50.9 Heart failure, unspecified; M19.90 Unspecified osteoarthritis, unspecified site; E11.21 Type 2 diabetes mellitus with diabetic nephropathy; N18.31 Chronic kidney disease, stage 3a; Z80.7 Family history of other malignant neoplasms of lymphoid, hematopoietic and related tissues; Z86.73 Personal history of transient ischemic attack (TIA), and cerebral infarction without residual deficits; Z90.49 Acquired absence of other specified parts of digestive tract
CPT/HCPCS: 36415; 49083; 71045; 74176; 76700; 76942; 80048; 80053; 81001; 82010; 82140; 82962; 83036; 83605; 83690; 83735; 83986; 84443; 84484; 85025; 85610; 87040; 87086; 87088; 87186; 87205; 87426; 89051; 93005; 96361; 96365; 96375; G0378; J0696; J1815; J7060; P9047

== ENCOUNTER 2020-12-16 20:12 | Inpatient (IN) | payer MEDICARE, MEDICAID ==
[~2020-12-16] VITALS: Ht 172.7 cm; Wt 80.0 kg
[~2020-12-16 20:12] MED LIST changes: -AML5T PO; +ASCO500T11 PO; -BENZ0.5T19 PO; -DOCU-94 PO; +DOCU100T15 PO; +FAMO-12 PO; +FER325T PO; +FURO40TA4 PO; +LORA-622 PO; +MECL25CH38 PO; -OMEP20CA74 PO; +TAMS0.4C36 PO; -VITA400T4 PO
[2020-12-16] MEDS ORDERED: KETOROLAC TROMETH 30 MG/ML 1ML VIAL IV ONE (20:45)
[2020-12-16] MEDS ORDERED: MORPHINE SULFATE 4 MG/ML SYR/VIAL IV ONE (20:45)
[2020-12-16] MEDS ORDERED: diazePAM 2 MG TAB PO ONE (20:45)
[2020-12-16 21:54] LABS: Basophils # (auto) 0 10 ^3/uL (0-0.2); Eosinophils # (auto) 0.1 10 ^3/uL (0-0.8); Hemoglobin 9.6 g/dL (13.5-17.5); Lymphocytes # (auto) 0.4 10 ^3/uL (0.4-5.4); Neutrophils # (auto) 2.3 10 ^3/uL (1.6-8.6)
[2020-12-16 21:56] LABS: Basophils % (auto) 0.4 % (0.0-2.0); Hematocrit 27.8 % (41.0-53.0); Lymphocytes % (auto) 13.1 % (10.0-50.0); Mean Corpuscular Hemoglobin 32.4 pg (28.0-32.0); Mean Corpuscular Hgb Conc. 34.4 g/dL (32.0-36.0); Mean Corpuscular Volume 94.3 fL (80.0-100.0); Monocytes # (auto) 0.4 10 ^3/uL (0-1.3); Monocytes % (auto) 12.5 % (0.0-12.0); Nucleated Red Blood Cells % 0.1 %; Red Blood Cells 2.95 10^6/uL (4.5-5.90); Red Cell Distribution Width 14.4 % (11.8-14.3); White Blood Cell 3.2 10^3/uL (4.4-10.8)
[2020-12-16 22:02] LABS: Alanine Aminotransferase 31 U/L (16-61); Albumin 1.9 g/dL (3.4-5.0); Anion Gap 10 (5-15); Aspartate Aminotransferase 27 U/L (15-37); Blood Urea Nitrogen 34 mg/dL (7-18); Calcium 7.7 mg/dL (8.5-10.1); Carbon Dioxide 27 mmol/L (21-32); Chloride 103 mmol/L (98-107); GFR African American 46 mL/min; GFR Non-African American 38 mL/min; Glucose 115 mg/dL (74-106); Lipase 119 U/L (73-393); Magnesium 2.3 mg/dL (1.6-2.6); Potassium 3.3 mmol/L (3.5-5.1); Sodium 140 mmol/L (136-145)
[2020-12-16 22:08] LABS: Alkaline Phosphatase 162 U/L (45-117); Bilirubin, Total 0.4 mg/dL (0.2-1.0); Total Protein 6.3 g/dL (6.4-8.2)
[2020-12-16 22:15] LABS: INR 1.16 (0.9-1.15); Partial Thromboplastin Time 25.6 sec (23.6-33.0)
[2020-12-17] MEDS ORDERED: HYDROcodone-ACET 5/325MG TAB PO ONE (01:00)
[2020-12-17] MEDS ORDERED: OCTREOTIDE ACETATE 100 MCG in SODIUM CHL 0.9% 50 ML IV ONE (01:15)
[2020-12-17] MEDS ORDERED: cefTRIAXone 1GM/50ML D5W 50 ML IV ONE (01:15)
[2020-12-17] MEDS ORDERED: PANTOPRAZOLE 40 MG/10 ML VIAL INJ IV ONE (01:15)
[2020-12-17 01:36] LABS: Urine Amorphous Crystal FEW /hpf (None Seen); Urine Bacteria FEW /hpf (None Seen); Urine Blood Negative /uL (Negative); Urine Hyaline Cast FEW /lpf (0 - 2); Urine Specific Gravity 1.012 (1.001-1.035); Urine WBC 1 /hpf (0 - 3)
[2020-12-17] MEDS ORDERED: OCTREOTIDE ACETATE 100 MCG/ML VL ONE (03:00)
[2020-12-17] MEDS ORDERED: OCTREOTIDE ACETATE 500 MCG/ML VL ONE (03:01)
[2020-12-17] MEDS ORDERED: ALBUMIN 25% 100 ML IV ONE (03:45)
[2020-12-17] MEDS ORDERED: ACETAMINOPHEN 325 MG TAB PO PRN (03:45)
[2020-12-17] MEDS ORDERED: HYDROcodone-ACET 5/325MG TAB PO PRN (03:45)
[2020-12-17] MEDS ORDERED: NITROGLYCERIN 0.4 MG SL TAB SL PRN ×2 (03:45→16:45)
[2020-12-17] MEDS ORDERED: ONDANSETRON HCL 4 MG/2 ML VIAL IV PRN ×2 (03:45→16:45)
[2020-12-17] MEDS ORDERED: MORPHINE SULFATE INJECTION 2 MG/ML SYRG IV PRN ×2 (03:45→16:45)
[2020-12-17] MEDS: OCTREOTIDE ACETATE 500 MCG in SODIUM CHL 0.9% 99 ML IV SCH ×2 (04:00→12:11)
[2020-12-17] MEDS: LACTULOSE 20Gm/30ML SOLN PO SCH ×4 (04:23→22:00)
[2020-12-17 05:00] LABS: Basophils # (auto) 0 10 ^3/uL (0-0.2); Basophils % (auto) 0.5 % (0.0-2.0); Eosinophils # (auto) 0.1 10 ^3/uL (0-0.8); Eosinophils % (auto) 4.2 % (0.0-7.0); Hematocrit 29.8 % (41.0-53.0); Hemoglobin 10.3 g/dL (13.5-17.5); Lymphocytes # (auto) 0.5 10 ^3/uL (0.4-5.4); Lymphocytes % (auto) 16.8 % (10.0-50.0); Mean Corpuscular Hemoglobin 32.6 pg (28.0-32.0); Mean Corpuscular Hgb Conc. 34.5 g/dL (32.0-36.0); Mean Corpuscular Volume 94.4 fL (80.0-100.0); Monocytes # (auto) 0.4 10 ^3/uL (0-1.3); Monocytes % (auto) 11.5 % (0.0-12.0); Neutrophils # (auto) 2.1 10 ^3/uL (1.6-8.6); Red Blood Cells 3.16 10^6/uL (4.5-5.90); Red Cell Distribution Width 14.3 % (11.8-14.3); White Blood Cell 3.1 10^3/uL (4.4-10.8)
[2020-12-17 05:13] LABS: Calcium 7.9 mg/dL (8.5-10.1); Potassium 3.1 mmol/L (3.5-5.1)
[2020-12-17 05:22] LABS: Bilirubin, Total 0.4 mg/dL (0.2-1.0); Total Protein 6.4 g/dL (6.4-8.2)
[2020-12-17] MEDS: SODIUM CHLOR 0.9% PF (SALINE LOCK) 10ML VIAL/SYR IV SCH ×3 (06:02→22:00)
[2020-12-17] MEDS ORDERED: DEXTROSE (50%) 50ML SYRG IV PRN ×2 (07:45→16:45)
[2020-12-17] MEDS: cefTRIAXone 1GM/50ML D5W 50 ML IV SCH (09:34)
[2020-12-17] MEDS: ZINC SULFATE 220mg CAP or TAB PO SCH (10:00)
[2020-12-17] MEDS: ASCORBIC ACID 500 MG TAB PO SCH ×2 (10:00→22:00)
[2020-12-17] MEDS: MULTIPLE VITAMIN TAB PO SCH (10:00)
[2020-12-17] MEDS ORDERED: FAMOTIDINE (10MG/ML) 2ML VL IV SCH (10:00)
[2020-12-17] MEDS ORDERED: InsuLIN REG 1unit/0.01ml Soln (100units/ml) SC SCH (11:30)
[2020-12-17] MEDS ORDERED: ACCU-CHEK COMFORT CURVE STRIP VI SCH (11:30)
[2020-12-17] MEDS: rifAXIMin 550 MG TAB PO SCH ×2 (13:31→22:00)
[2020-12-17] MEDS ORDERED: FUROSEMIDE INJECTION 100 MG in D5W 5% 100 ML IV SCH (16:45)
[2020-12-17] MEDS: InsuLIN REG 1unit/0.01ml Soln (100units/ml) SC SCH ×2 (17:58→22:00)
[2020-12-17] MEDS ORDERED: LACTULOSE 20Gm/30ML SOLN PO SCH (18:00)
[2020-12-17] MEDS: ACCU-CHEK COMFORT CURVE STRIP VI SCH ×2 (18:00→22:00)
[2020-12-17] MEDS ORDERED: hydrALAZINE HCL 20 MG/ML VL IV PRN (20:30)
[2020-12-17] MEDS ORDERED: POTASSIUM CHL 20MEQ/100ML 100 ML IV ONE (20:30)
[2020-12-17] MEDS ORDERED: POTASSIUM CHL 20 Meq TABLET PO ONE (20:30)
[2020-12-17 22:00] VITALS: BP 171/85
[2020-12-17] MEDS ORDERED: ZIPRASIDONE HCL 80 MG CAP PO SCH (22:00)
[2020-12-17] MEDS: PANTOPRAZOLE 40 MG/10 ML VIAL INJ IV SCH (22:00)
[2020-12-17] MEDS: ZIPRASIDONE 80MG PO SCH (22:00)
[2020-12-17] MEDS ORDERED: PANTOPRAZOLE 40 MG TAB PO SCH (22:00)
[2020-12-17] MEDS: FUROSEMIDE 20 MG/2 ML VIAL IV SCH (22:00)
[2020-12-17 22:46] VITALS: BP 171/85
[2020-12-18 05:00] VITALS: BP 140/71
[2020-12-18] MEDS: SODIUM CHLOR 0.9% PF (SALINE LOCK) 10ML VIAL/SYR IV SCH ×3 (06:00→23:04)
[2020-12-18] MEDS: InsuLIN REG 1unit/0.01ml Soln (100units/ml) SC SCH ×4 (06:22→22:56)
[2020-12-18 06:34] LABS: Basophils # (auto) 0 10 ^3/uL (0-0.2); Basophils % (auto) 0.4 % (0.0-2.0); Eosinophils # (auto) 0.1 10 ^3/uL (0-0.8); Eosinophils % (auto) 3.4 % (0.0-7.0); Hematocrit 30.3 % (41.0-53.0); Hemoglobin 10.6 g/dL (13.5-17.5); Lymphocytes # (auto) 0.4 10 ^3/uL (0.4-5.4); Mean Corpuscular Hemoglobin 33.2 pg (28.0-32.0); Mean Corpuscular Hgb Conc. 35.1 g/dL (32.0-36.0); Mean Corpuscular Volume 94.7 fL (80.0-100.0); Monocytes # (auto) 0.4 10 ^3/uL (0-1.3); Monocytes % (auto) 11.5 % (0.0-12.0); Neutrophils # (auto) 2.8 10 ^3/uL (1.6-8.6); Neutrophils % (auto) 73.7 % (37.0-80.0); Nucleated Red Blood Cells % 0.1 %; Red Cell Distribution Width 14.3 % (11.8-14.3); White Blood Cell 3.8 10^3/uL (4.4-10.8)
[2020-12-18] MEDS: ACCU-CHEK COMFORT CURVE STRIP VI SCH ×4 (06:36→22:57)
[2020-12-18 06:54] LABS: Albumin 2.2 g/dL (3.4-5.0); BUN/Creatinine Ratio 18.4; Bilirubin, Total 0.6 mg/dL (0.2-1.0); Calcium 7.9 mg/dL (8.5-10.1); Total Protein 6.5 g/dL (6.4-8.2)
[2020-12-18 09:00] VITALS: BP 144/80
[2020-12-18] MEDS: LACTULOSE 20Gm/30ML SOLN PO SCH ×2 (09:55→23:04)
[2020-12-18] MEDS: cefTRIAXone 1GM/50ML D5W 50 ML IV SCH (09:55)
[2020-12-18] MEDS: PANTOPRAZOLE 40 MG/10 ML VIAL INJ IV SCH ×2 (09:55→23:01)
[2020-12-18] MEDS: FUROSEMIDE 20 MG/2 ML VIAL IV SCH ×2 (09:56→23:10)
[2020-12-18] MEDS: NEOMYCIN SULFATE 500 MG TAB PO SCH (09:57)
[2020-12-18] MEDS: ASCORBIC ACID 500 MG TAB PO SCH ×2 (09:57→22:55)
[2020-12-18] MEDS: CITALOPRAM HYDROBR 20 MG TAB PO SCH (09:57)
[2020-12-18] MEDS: MULTIPLE VITAMIN TAB PO SCH (09:57)
[2020-12-18] MEDS: ZIPRASIDONE 80MG PO SCH ×2 (09:58→23:05)
[2020-12-18] MEDS: rifAXIMin 550 MG TAB PO SCH ×2 (10:01→22:57)
[2020-12-18] MEDS: ZINC SULFATE 220mg CAP or TAB PO SCH (10:01)
[2020-12-18 17:00] VITALS: BP 125/68
[2020-12-18 22:00] VITALS: BP 148/81
[2020-12-19 05:00] VITALS: BP 160/69
[2020-12-19] MEDS: SODIUM CHLOR 0.9% PF (SALINE LOCK) 10ML VIAL/SYR IV SCH ×3 (06:18→21:20)
[2020-12-19] MEDS: ACCU-CHEK COMFORT CURVE STRIP VI SCH ×4 (06:18→21:19)
[2020-12-19] MEDS: InsuLIN REG 1unit/0.01ml Soln (100units/ml) SC SCH ×4 (06:20→21:01)
[2020-12-19 09:14] VITALS: BP 154/68
[2020-12-19] MEDS: FUROSEMIDE 20 MG/2 ML VIAL IV SCH ×2 (10:02→20:58)
[2020-12-19] MEDS: cefTRIAXone 1GM/50ML D5W 50 ML IV SCH (10:02)
[2020-12-19] MEDS: ZIPRASIDONE 80MG PO SCH ×2 (10:03→20:59)
[2020-12-19] MEDS: PANTOPRAZOLE 40 MG/10 ML VIAL INJ IV SCH ×2 (10:03→20:57)
[2020-12-19] MEDS: CITALOPRAM HYDROBR 20 MG TAB PO SCH (10:03)
[2020-12-19] MEDS: LACTULOSE 20Gm/30ML SOLN PO SCH ×2 (10:03→20:57)
[2020-12-19] MEDS: ZINC SULFATE 220mg CAP or TAB PO SCH (10:03)
[2020-12-19] MEDS: rifAXIMin 550 MG TAB PO SCH ×2 (10:04→20:58)
[2020-12-19] MEDS: ASCORBIC ACID 500 MG TAB PO SCH ×2 (10:04→20:59)
[2020-12-19] MEDS: MULTIPLE VITAMIN TAB PO SCH (10:04)
[2020-12-19] MEDS: NEOMYCIN SULFATE 500 MG TAB PO SCH (10:04)
[2020-12-19 13:00] VITALS: BP 161/78
[2020-12-19 17:00] VITALS: BP 158/78
[2020-12-19 22:00] VITALS: BP 158/81
[2020-12-20 05:00] VITALS: BP 154/78
[2020-12-20] MEDS: ACCU-CHEK COMFORT CURVE STRIP VI SCH ×2 (07:26→11:30)
[2020-12-20] MEDS: SODIUM CHLOR 0.9% PF (SALINE LOCK) 10ML VIAL/SYR IV SCH (07:26)
[2020-12-20] MEDS: InsuLIN REG 1unit/0.01ml Soln (100units/ml) SC SCH ×2 (07:27→11:30)
[2020-12-20 09:00] VITALS: BP 154/75
[2020-12-20] MEDS: PANTOPRAZOLE 40 MG/10 ML VIAL INJ IV SCH (10:07)
[2020-12-20] MEDS: cefTRIAXone 1GM/50ML D5W 50 ML IV SCH (10:07)
[2020-12-20] MEDS: FUROSEMIDE 20 MG/2 ML VIAL IV SCH (10:07)
[2020-12-20] MEDS: LACTULOSE 20Gm/30ML SOLN PO SCH (10:08)
[2020-12-20] MEDS: MULTIPLE VITAMIN TAB PO SCH (10:09)
[2020-12-20] MEDS: NEOMYCIN SULFATE 500 MG TAB PO SCH (10:09)
[2020-12-20] MEDS: ZIPRASIDONE 80MG PO SCH (10:09)
[2020-12-20] MEDS: CITALOPRAM HYDROBR 20 MG TAB PO SCH (10:09)
[2020-12-20] MEDS: ZINC SULFATE 220mg CAP or TAB PO SCH (10:09)
[2020-12-20] MEDS: ASCORBIC ACID 500 MG TAB PO SCH (10:10)
[2020-12-20] MEDS: rifAXIMin 550 MG TAB PO SCH (10:10)
[2020-12-20] MEDS ORDERED: InsuLIN REG 1unit/0.01ml Soln (100units/ml) SC ONE (12:45)
== END 2020-12-20 14:50 | disposition home or self-care (01) | DRG 377 ==
LOC: EDBD 20:12 → ER 20:12 → OVERFLOW 12-17 03:49 → WEST WING 12-17 22:05
PROVIDERS: ADMIT Specialist; ATTEND Specialist
PROC: 0W9G3ZZ Drainage of Peritoneal Cavity, Percutaneous Approach (ICD-10-PCS; principal; 2020-12-19)
DX: K92.2 Gastrointestinal hemorrhage, unspecified (principal); G93.41 Metabolic encephalopathy; N17.9 Acute kidney failure, unspecified; D61.818 Other pancytopenia; K70.31 Alcoholic cirrhosis of liver with ascites; E88.09 Other disorders of plasma-protein metabolism, not elsewhere classified; E87.6 Hypokalemia; N18.30 Chronic kidney disease, stage 3 unspecified; F20.9 Schizophrenia, unspecified; E11.22 Type 2 diabetes mellitus with diabetic chronic kidney disease; E78.5 Hyperlipidemia, unspecified; M54.5 Low back pain; Z20.822 Contact with and (suspected) exposure to COVID-19; G89.29 Other chronic pain; I12.9 Hypertensive chronic kidney disease with stage 1 through stage 4 chronic kidney disease, or unspecified chronic kidney disease; Z79.4 Long term (current) use of insulin; Z79.82 Long term (current) use of aspirin; Z80.7 Family history of other malignant neoplasms of lymphoid, hematopoietic and related tissues; Z82.49 Family history of ischemic heart disease and other diseases of the circulatory system; Z83.3 Family history of diabetes mellitus; Z86.73 Personal history of transient ischemic attack (TIA), and cerebral infarction without residual deficits; Z90.49 Acquired absence of other specified parts of digestive tract
CPT/HCPCS: 36415; 51702; 71045; 74176; 76700; 76942; 80053; 81001; 82140; 82962; 83605; 83690; 83735; 84484; 85025; 85610; 85730; 86850; 86900; 86901; 87081; 87426; 93005; 96365; 96366; 96367; 96368; 96372; 96375; C9113; G0378; J0696; J1815; J1885; J3480; J3490; J7060; P9047

== ENCOUNTER 2021-06-24 16:36 | Emergency (ER) | payer MEDICARE, MEDICAID ==
[~2021-06-24] VITALS: Ht 170.2 cm; Wt 95.3 kg
[2021-06-24] MEDS ORDERED: LACTATED RINGER'S 1,000 ML IV ONE (17:15)
[2021-06-24 18:00] LABS: Basophils # (auto) 0 10 ^3/uL (0-0.2); Basophils % (auto) 0.5 % (0.0-2.0); Eosinophils # (auto) 0 10 ^3/uL (0-0.8); Eosinophils % (auto) 0.6 % (0.0-7.0); Hematocrit 30.4 % (41.0-53.0); Hemoglobin 10.4 g/dL (13.5-17.5); Lymphocytes # (auto) 0.4 10 ^3/uL (0.4-5.4); Lymphocytes % (auto) 9.2 % (10.0-50.0); Mean Corpuscular Hemoglobin 32.2 pg (28.0-32.0); Mean Corpuscular Hgb Conc. 34.2 g/dL (32.0-36.0); Mean Corpuscular Volume 94.2 fL (80.0-100.0); Monocytes # (auto) 0.4 10 ^3/uL (0-1.3); Monocytes % (auto) 8.2 % (0.0-12.0); Neutrophils # (auto) 3.8 10 ^3/uL (1.6-8.6); Neutrophils % (auto) 81.5 % (37.0-80.0); Nucleated Red Blood Cells % 0.1 %; Red Blood Cells 3.23 10^6/uL (4.5-5.90); Red Cell Distribution Width 15.4 % (11.8-14.3); White Blood Cell 4.7 10^3/uL (4.4-10.8)
[2021-06-24 18:16] LABS: Albumin 1.7 g/dL (3.4-5.0); BUN/Creatinine Ratio 20.4; Calcium 6.8 mg/dL (8.5-10.1); Potassium 3.3 mmol/L (3.5-5.1)
[2021-06-24 18:20] LABS: Bilirubin, Total 0.3 mg/dL (0.2-1.0); Magnesium 2.5 mg/dL (1.6-2.6); Total Protein 5.4 g/dL (6.4-8.2)
[2021-06-24 23:07] VITALS: BP 120/77
== END 2021-06-24 23:08 | disposition home or self-care (01) ==
LOC: EDUNIT# 16:36 → EDBD 16:36 → ER 16:38
DX: E11.40 Type 2 diabetes mellitus with diabetic neuropathy, unspecified (principal); E11.42 Type 2 diabetes mellitus with diabetic polyneuropathy; E78.5 Hyperlipidemia, unspecified; I10 Essential (primary) hypertension; Z90.49 Acquired absence of other specified parts of digestive tract; Z86.73 Personal history of transient ischemic attack (TIA), and cerebral infarction without residual deficits
CPT/HCPCS: 36415; 36600; 80053; 82010; 82805; 83690; 83735; 83880; 84484; 85025; 93005; 96360; 96361

== ENCOUNTER 2021-08-12 18:18 | Inpatient (IN) | payer MEDICARE, MEDICAID ==
[~2021-08-12] VITALS: Ht 162.6 cm; Wt 62.2 kg
[2021-08-12 18:56] LABS: Basophils # (auto) 0.1 10 ^3/uL (0-0.2); Basophils % (auto) 1.8 % (0.0-2.0); Eosinophils # (auto) 0 10 ^3/uL (0-0.8); Eosinophils % (auto) 0.4 % (0.0-7.0); Hematocrit 31.2 % (41.0-53.0); Lymphocytes # (auto) 0.3 10 ^3/uL (0.4-5.4); Lymphocytes % (auto) 5.7 % (10.0-50.0); Mean Corpuscular Hemoglobin 33.6 pg (28.0-32.0); Mean Corpuscular Hgb Conc. 35.2 g/dL (32.0-36.0); Mean Corpuscular Volume 95.7 fL (80.0-100.0); Monocytes # (auto) 0.5 10 ^3/uL (0-1.3); Monocytes % (auto) 9.3 % (0.0-12.0); Neutrophils # (auto) 4.1 10 ^3/uL (1.6-8.6); Neutrophils % (auto) 82.8 % (37.0-80.0); Nucleated Red Blood Cells % 0.1 %; Red Blood Cells 3.26 10^6/uL (4.5-5.90); Red Cell Distribution Width 16.5 % (11.8-14.3)
[2021-08-12] MEDS ORDERED: SODIUM CHLORIDE 0.9% 1,000 ML IV ONE ×2 (19:00→20:15)
[2021-08-12 19:13] LABS: Albumin 1.8 g/dL (3.4-5.0); BUN/Creatinine Ratio 22.5; Calcium 7.3 mg/dL (8.5-10.1); Potassium 4.1 mmol/L (3.5-5.1)
[2021-08-12 19:15] LABS: Bilirubin, Total 0.3 mg/dL (0.2-1.0); Total Protein 5.9 g/dL (6.4-8.2)
[2021-08-12 19:29] LABS: Magnesium 2.5 mg/dL (1.6-2.6)
[2021-08-12] MEDS ORDERED: InsuLIN REG 1unit/0.01ml Soln (100units/ml) IV ONE (20:15)
[2021-08-12] MEDS ORDERED: LACTULOSE 20Gm/30ML SOLN PO ONE (20:15)
[2021-08-12] MEDS ORDERED: TAMSULOSIN HYDROCHLORIDE 0.4 MG CAP PO ONE (21:15)
[2021-08-12] MEDS ORDERED: DEXTROSE (50%) 50ML SYRG IV ONE (21:45)
[2021-08-12] MEDS: LACTULOSE 20Gm/30ML SOLN PO SCH (22:00)
[2021-08-12] MEDS: NEOMYCIN SULFATE 500 MG TAB PO SCH (22:00)
[2021-08-12] MEDS: InsuLIN REG 1unit/0.01ml Soln (100units/ml) SC SCH (22:00)
[2021-08-12] MEDS: ACCU-CHEK COMFORT CURVE STRIP VI SCH (22:00)
[2021-08-12] MEDS: FUROSEMIDE 100 MG/10ML VIAL IV SCH (22:00)
[2021-08-12] MEDS: INSULIN LANTUS (GLARGINE) 1 /0.01ml (100units/ml) SC SCH (22:00)
[2021-08-12] MEDS: DOCUSATE SOD 100 MG CAP PO SCH (22:00)
[2021-08-13] VITALS (8 sets, daily range): BP systolic 103–128; BP diastolic 64–70
[2021-08-13] MEDS ORDERED: NITROGLYCERIN 0.4 MG SL TAB SL PRN (01:00)
[2021-08-13] MEDS ORDERED: MORPHINE SULFATE INJ 2 MG/ml SYRG IV PRN (01:00)
[2021-08-13] MEDS: LACTULOSE 20Gm/30ML SOLN PO SCH ×3 (06:38→22:22)
[2021-08-13] MEDS: ACCU-CHEK COMFORT CURVE STRIP VI SCH ×4 (06:39→22:24)
[2021-08-13] MEDS: CITALOPRAM HYDROBR 20 MG TAB PO SCH (06:39)
[2021-08-13] MEDS: InsuLIN REG 1unit/0.01ml Soln (100units/ml) SC SCH ×4 (06:40→22:25)
[2021-08-13] MEDS: INSULIN LANTUS (GLARGINE) 1 /0.01ml (100units/ml) SC SCH ×2 (06:40→22:25)
[2021-08-13] MEDS ORDERED: INSLANTI SC (07:43)
[2021-08-13] MEDS ORDERED: LACT10SO3 PO (07:43)
[2021-08-13 08:25] LABS: Basophils # (auto) 0 10 ^3/uL (0-0.2); Basophils % (auto) 0.4 % (0.0-2.0); Eosinophils # (auto) 0.1 10 ^3/uL (0-0.8); Eosinophils % (auto) 1.3 % (0.0-7.0); Hematocrit 31.1 % (41.0-53.0); Hemoglobin 10.8 g/dL (13.5-17.5); Lymphocytes # (auto) 0.4 10 ^3/uL (0.4-5.4); Lymphocytes % (auto) 7.7 % (10.0-50.0); Mean Corpuscular Hemoglobin 32.9 pg (28.0-32.0); Mean Corpuscular Hgb Conc. 34.8 g/dL (32.0-36.0); Mean Corpuscular Volume 94.6 fL (80.0-100.0); Monocytes # (auto) 0.4 10 ^3/uL (0-1.3); Monocytes % (auto) 9.5 % (0.0-12.0); Neutrophils # (auto) 3.7 10 ^3/uL (1.6-8.6); Neutrophils % (auto) 81.1 % (37.0-80.0); Red Blood Cells 3.29 10^6/uL (4.5-5.90); Red Cell Distribution Width 16.3 % (11.8-14.3); White Blood Cell 4.6 10^3/uL (4.4-10.8)
[2021-08-13 08:42] LABS: Albumin 1.8 g/dL (3.4-5.0); BUN/Creatinine Ratio 24.2; Calcium 7.3 mg/dL (8.5-10.1); Potassium 3.5 mmol/L (3.5-5.1)
[2021-08-13 08:47] LABS: Bilirubin, Total 0.3 mg/dL (0.2-1.0); Total Protein 6.1 g/dL (6.4-8.2)
[2021-08-13] MEDS: DOCUSATE SOD 100 MG CAP PO SCH ×2 (10:03→22:24)
[2021-08-13] MEDS: amLODIPine BESYLATE 5 MG TAB PO SCH (10:03)
[2021-08-13] MEDS: FUROSEMIDE 100 MG/10ML VIAL IV SCH ×2 (10:04→22:22)
[2021-08-13] MEDS: PANTOPRAZOLE 40 MG/10 ML VIAL INJ IV SCH (10:04)
[2021-08-13] MEDS: NEOMYCIN SULFATE 500 MG TAB PO SCH ×2 (12:14→22:24)
[2021-08-13] MEDS: PATIENTS OWN MEDICATION PO SCH (22:23)
[2021-08-14 05:02] VITALS: BP 104/61
[2021-08-14 06:09] LABS: Basophils # (auto) 0 10 ^3/uL (0-0.2); Basophils % (auto) 0.6 % (0.0-2.0); Eosinophils # (auto) 0.1 10 ^3/uL (0-0.8); Lymphocytes # (auto) 0.5 10 ^3/uL (0.4-5.4); Monocytes # (auto) 0.5 10 ^3/uL (0-1.3); Neutrophils # (auto) 3.7 10 ^3/uL (1.6-8.6); Neutrophils % (auto) 77.1 % (37.0-80.0); White Blood Cell 4.8 10^3/uL (4.4-10.8)
[2021-08-14 06:14] LABS: Eosinophils % (auto) 1.9 % (0.0-7.0); Hematocrit 30.5 % (41.0-53.0); Lymphocytes % (auto) 9.4 % (10.0-50.0); Mean Corpuscular Hemoglobin 33.9 pg (28.0-32.0); Mean Corpuscular Hgb Conc. 36.2 g/dL (32.0-36.0); Mean Corpuscular Volume 93.7 fL (80.0-100.0); Nucleated Red Blood Cells % 0.1 %; Red Blood Cells 3.26 10^6/uL (4.5-5.90); Red Cell Distribution Width 16.7 % (11.8-14.3)
[2021-08-14] MEDS: LACTULOSE 20Gm/30ML SOLN PO SCH ×3 (06:21→22:09)
[2021-08-14 06:23] LABS: INR 1.05 (0.9-1.15)
[2021-08-14] MEDS: InsuLIN REG 1unit/0.01ml Soln (100units/ml) SC SCH ×4 (06:24→22:29)
[2021-08-14] MEDS: ACCU-CHEK COMFORT CURVE STRIP VI SCH ×4 (06:24→22:09)
[2021-08-14] MEDS: INSULIN LANTUS (GLARGINE) 1 /0.01ml (100units/ml) SC SCH ×2 (06:25→22:29)
[2021-08-14] MEDS: CITALOPRAM HYDROBR 20 MG TAB PO SCH (06:25)
[2021-08-14 06:37] LABS: Albumin 1.8 g/dL (3.4-5.0); Calcium 7.6 mg/dL (8.5-10.1); Potassium 3.7 mmol/L (3.5-5.1)
[2021-08-14 06:40] LABS: BUN/Creatinine Ratio 24.4; Bilirubin, Total 0.4 mg/dL (0.2-1.0)
[2021-08-14] MEDS ORDERED: ACETAMINOPHEN 325 MG TAB PO PRN (07:45)
[2021-08-14 08:00] VITALS: BP 107/63
[2021-08-14 08:30] VITALS: BP 107/63
[2021-08-14] MEDS: DOCUSATE SOD 100 MG CAP PO SCH ×2 (11:03→22:07)
[2021-08-14] MEDS: NEOMYCIN SULFATE 500 MG TAB PO SCH (11:06)
[2021-08-14] MEDS: PATIENTS OWN MEDICATION PO SCH ×2 (11:07→22:09)
[2021-08-14] MEDS: PANTOPRAZOLE 40 MG/10 ML VIAL INJ IV SCH (11:08)
[2021-08-14] MEDS: FUROSEMIDE 100 MG/10ML VIAL IV SCH ×2 (11:39→22:09)
[2021-08-14 12:00] VITALS: BP 105/52
[2021-08-14] MEDS: amLODIPine BESYLATE 5 MG TAB PO SCH (13:44)
[2021-08-14 16:00] VITALS: BP 131/65
[2021-08-14] MEDS: rifAXIMin 550 MG TAB PO SCH (22:07)
[2021-08-14 23:38] VITALS: BP 121/57
[2021-08-15 05:22] VITALS: BP 118/59
[2021-08-15] MEDS: ACCU-CHEK COMFORT CURVE STRIP VI SCH ×4 (06:12→22:21)
[2021-08-15] MEDS: LACTULOSE 20Gm/30ML SOLN PO SCH ×3 (06:13→22:21)
[2021-08-15] MEDS: CITALOPRAM HYDROBR 20 MG TAB PO SCH (06:16)
[2021-08-15] MEDS: InsuLIN REG 1unit/0.01ml Soln (100units/ml) SC SCH ×4 (06:24→22:24)
[2021-08-15] MEDS: INSULIN LANTUS (GLARGINE) 1 /0.01ml (100units/ml) SC SCH ×2 (06:24→22:27)
[2021-08-15 09:00] VITALS: BP 121/63
[2021-08-15] MEDS: FUROSEMIDE 100 MG/10ML VIAL IV SCH ×2 (10:24→22:23)
[2021-08-15] MEDS: PANTOPRAZOLE 40 MG/10 ML VIAL INJ IV SCH (10:24)
[2021-08-15] MEDS: DOCUSATE SOD 100 MG CAP PO SCH ×2 (10:25→22:21)
[2021-08-15] MEDS: PATIENTS OWN MEDICATION PO SCH ×2 (10:25→22:35)
[2021-08-15] MEDS: rifAXIMin 550 MG TAB PO SCH (10:26)
[2021-08-15] MEDS: amLODIPine BESYLATE 5 MG TAB PO SCH (10:26)
[2021-08-15 13:00] VITALS: BP 137/76
[2021-08-15 16:58] VITALS: BP 116/62
[2021-08-15 22:00] VITALS: BP 134/76
[2021-08-16 05:00] VITALS: BP 128/73
[2021-08-16 05:50] LABS: Albumin 1.8 g/dL (3.4-5.0)
[2021-08-16 05:55] LABS: Bilirubin, Direct 0.1 mg/dL (0-0.2); Bilirubin, Total 0.4 mg/dL (0.2-1.0); Total Protein 6.3 g/dL (6.4-8.2)
[2021-08-16] MEDS: CITALOPRAM HYDROBR 20 MG TAB PO SCH (06:41)
[2021-08-16] MEDS: ACCU-CHEK COMFORT CURVE STRIP VI SCH ×2 (06:41→11:57)
[2021-08-16] MEDS: LACTULOSE 20Gm/30ML SOLN PO SCH ×2 (06:41→14:34)
[2021-08-16] MEDS: INSULIN LANTUS (GLARGINE) 1 /0.01ml (100units/ml) SC SCH (06:42)
[2021-08-16] MEDS: InsuLIN REG 1unit/0.01ml Soln (100units/ml) SC SCH ×2 (06:43→11:59)
[2021-08-16 09:00] VITALS: BP 133/28
[2021-08-16] MEDS: PANTOPRAZOLE 40 MG/10 ML VIAL INJ IV SCH (11:10)
[2021-08-16] MEDS: PATIENTS OWN MEDICATION PO SCH (11:10)
[2021-08-16] MEDS: DOCUSATE SOD 100 MG CAP PO SCH (11:10)
[2021-08-16] MEDS: FUROSEMIDE 100 MG/10ML VIAL IV SCH (11:11)
[2021-08-16] MEDS: amLODIPine BESYLATE 5 MG TAB PO SCH (11:11)
[2021-08-16 13:33] VITALS: BP 143/83
[2021-08-16 14:00] VITALS: BP 120/65
== END 2021-08-16 16:03 | disposition home or self-care (01) | DRG 433 ==
LOC: EDBD 18:18 → ER 18:25 → TELE-EAST 08-13 00:49
PROVIDERS: ADMIT Nurse Practitioner Family; ATTEND Specialist
PROC: 0W9G3ZZ Drainage of Peritoneal Cavity, Percutaneous Approach (ICD-10-PCS; principal; 2021-08-14)
DX: K74.60 Unspecified cirrhosis of liver (principal); D61.818 Other pancytopenia; D68.4 Acquired coagulation factor deficiency; N17.9 Acute kidney failure, unspecified; R18.8 Other ascites; I13.0 Hypertensive heart and chronic kidney disease with heart failure and stage 1 through stage 4 chronic kidney disease, or unspecified chronic kidney disease; K72.90 Hepatic failure, unspecified without coma; D63.8 Anemia in other chronic diseases classified elsewhere; E11.22 Type 2 diabetes mellitus with diabetic chronic kidney disease; E86.0 Dehydration; N18.30 Chronic kidney disease, stage 3 unspecified; E11.65 Type 2 diabetes mellitus with hyperglycemia; Z20.822 Contact with and (suspected) exposure to COVID-19; F20.9 Schizophrenia, unspecified; I50.9 Heart failure, unspecified; F41.9 Anxiety disorder, unspecified; R29.6 Repeated falls; R79.89 Other specified abnormal findings of blood chemistry; Z79.899 Other long term (current) drug therapy; Z79.4 Long term (current) use of insulin; Z80.7 Family history of other malignant neoplasms of lymphoid, hematopoietic and related tissues; Z82.49 Family history of ischemic heart disease and other diseases of the circulatory system; Z83.3 Family history of diabetes mellitus; Z86.73 Personal history of transient ischemic attack (TIA), and cerebral infarction without residual deficits; Z91.19 Patient's noncompliance with other medical treatment and regimen; Z90.49 Acquired absence of other specified parts of digestive tract
CPT/HCPCS: 36415; 70450; 74176; 76705; 76942; 80053; 80076; 82010; 82140; 82306; 82962; 83036; 83615; 83690; 83735; 83986; 85025; 85049; 85610; 87205; 89051; 93970; 96360; 96361; 97110; 97116; 97163; 97530; C9113; G0378; J1815

== ENCOUNTER 2021-08-25 20:54 | Emergency (ER) | payer MEDICARE, MEDICAID ==
[~2021-08-25] VITALS: Ht 157.5 cm; Wt 81.6 kg
[~2021-08-25 20:54] MED LIST changes: -MECL25CH38 PO
[2021-08-26] MEDS ORDERED: ACETAMINOPHEN 325 MG TAB PO ONE (02:00)
[2021-08-26 07:09] VITALS: BP 102/64
== END 2021-08-26 07:12 | disposition home or self-care (01) ==
LOC: EDBD 20:54 → ER 20:54
DX: M54.2 Cervicalgia (principal); E11.9 Type 2 diabetes mellitus without complications; E78.5 Hyperlipidemia, unspecified; I10 Essential (primary) hypertension; Z90.49 Acquired absence of other specified parts of digestive tract; Z86.73 Personal history of transient ischemic attack (TIA), and cerebral infarction without residual deficits
CPT/HCPCS: 70450; 72125; 72131; 93005